=== PATIENT | male | born 1950 | race African-American/Black ===

== ENCOUNTER 2016-06-20 09:05 | Emergency (ER) | payer OTHER ==
[2016-06-20 10:09] LABS: Urine Bacteria Absent (Absent); Urine Bilirubin Negative (Negative); Urine Glucose Negative (Negative); Urine Nitrite Positive (Negative)
[2016-06-20] MEDS ORDERED: Ciprofloxacin TAB* 500 MG PO ONE ×2 (10:14→10:20)
[2016-06-20 10:46] VITALS: BP 148/103
--- NOTE | 2016-06-20 11:04 | ED ---
GI/ HPI - HPI Summary HPI Summary: Patient presents with 5 days of increasing pain with urination. He had an urinary tract infection a few years ago that felt the same. He tried drinking extra water without relief. He denies fever, chills, N/V/D, back pain or blood in his urine. - History of Current Complaint Hx Obtained From: Patient Onset/Duration: Started Days Ago - 5 Timing: Constant Severity: Moderate Current Severity: Moderate Location of Pain: None Pain Characteristics: Burning - with urination Associated Signs and Symptoms: Positive: Dysuria <Madhu Hagen - Last Filed: 06/20/16 10:39> <Ana Maria Adrian - Last Filed: 06/20/16 16:32> - History of Current Complaint Chief Complaint: EDUrogenitalProblems Time Seen by Provider: 06/20/16 09:14 Stated Complaint: PAINFUL URINATION - Allergy/Home Medications Allergies/Adverse Reactions: Allergies Allergy/AdvReac Type Severity Reaction Status Date / Time No Known Allergies Allergy Verified 12/13/15 16:06 PMH/Surg Hx/FS Hx/Imm Hx Endocrine/Hematology History: Denies: Hx Anticoagulant Therapy, Hx Diabetes Cardiovascular History: Denies: Other Cardiovascular Problems/Disorders - DENIES Respiratory History: Denies: Other Respiratory Problems/Disorders - DENIES GI History: Reports: Other GI Disorders - gall stone History: Reports: Other Problems/Disorders - Anal/ fistula, surgical repair Denies: Hx Renal Disease Sensory History: Denies: Hx Contacts or Glasses Opthamlomology History: Denies: Hx Contacts or Glasses Psychiatric History: Reports: Hx Substance Abuse - states not in 8 years. - Surgical History Surgery Procedure, Year, and Place: Anal/ fistula, surgical repair ~2010 Infectious Disease History: No Infectious Disease History: Denies: Traveled Outside the [place] in Last 30 Days - Family History Known Family History: Positive: None Negative: Cardiac Disease Family History: R & n/C - Social History Occupation: Unemployed Lives: With Family Alcohol Use: None Hx Substance Use: No Substance Use Type: Reports: None Hx Tobacco Use: Yes Smoking Status (MU): Former Smoker <Madhu Hagen - Last Filed: 06/20/16 10:39> Review of Systems Negative: Fever, Chills Positive: burning, dysuria. Negative: flank pain All Other Systems Reviewed And Are Negative: Yes <DevenJavierMadhu Peterson - Last Filed: 06/20/16 10:39> Physical Exam Triage Information Reviewed: Yes Vital Signs On Initial Exam: Initial Vitals Temp Pulse Resp BP Pulse Ox 97.5 F 98 20 136/104 95 06/20/16 09:07 06/20/16 09:07 06/20/16 09:07 06/20/16 09:07 06/20/16 09:07 Vital Signs Reviewed: Yes Appearance: Positive: Well-Appearing, No Pain Distress, Well-Nourished Skin: Positive: Warm, Skin Color Reflects Adequate Perfusion, Dry, Soft Head/Face: Positive: Normal Head/Face Inspection Eyes: Positive: EOMI, KATHLEEN, Conjunctiva Clear ENT: Positive: Hearing grossly normal Respiratory/Lung Sounds: Positive: Breath Sounds Present Cardiovascular: Positive: RRR Abdomen Description: Positive: Soft. Negative: Nontender, CVA Tenderness (R), CVA Tenderness (L), Distended, Guarding Bowel Sounds: Positive: Present Musculoskeletal: Negative: Edema Left, Edema Right Neurological: Positive: Sensory/Motor Intact, Alert, Oriented to Person Place, Time, [place] Bundle Intact Distally, Normal Gait Psychiatric: Positive: Affect/Mood Appropriate AVPU Assessment: Alert <XiaoMadhu Peterson - Last Filed: 06/20/16 10:39> Vital Signs On Initial Exam: Initial Vitals Temp Pulse Resp BP Pulse Ox 97.5 F 98 20 136/104 95 06/20/16 09:07 06/20/16 09:07 06/20/16 09:07 06/20/16 09:07 06/20/16 09:07 <Ana Maria Adrian - Last Filed: 06/20/16 16:32> Diagnostics - Vital Signs Vital Signs Temp Pulse Resp BP Pulse Ox 06/20/16 09:07 97.5 F 98 20 136/104 95 - Laboratory Lab Results: Lab Results 06/20/16 Range/Units 09:25 Urine Color Yellow Urine Appearance Cloudy Urine pH 5.0 (5-9) Ur Specific [place] 1.015 (1.010-1.030) Urine Protein 2+(100 mg/dl) H (Negative) Urine Ketones Negative (Negative) Urine Blood 3+ H (Negative) Urine Nitrate Positive H (Negative) Urine Bilirubin Negative (Negative) Urine Urobilinogen Negative (Negative) Ur Leukocyte Esterase 3+ H (Negative) Urine WBC (Auto) 3+(>20/hpf) H (Absent) Urine RBC (Auto) 3+(>10/hpf) H (Absent) Urine Bacteria Absent (Absent) Urine Glucose Negative (Negative) Lab Statement: Any lab studies that have been ordered have been reviewed, and results considered in the medical decision making process. <Madhu Hagen - Last Filed: 06/20/16 10:39> - Vital Signs Vital Signs Temp Pulse Resp BP Pulse Ox 06/20/16 10:44 97.5 F 79 18 148/103 06/20/16 10:42 97.3 F 76 18 148/101 96 06/20/16 09:07 97.5 F 98 20 136/104 95 - Laboratory Lab Results: Lab Results 06/20/16 Range/Units 09:25 Urine Color Yellow Urine Appearance Cloudy Urine pH 5.0 (5-9) Ur Specific [place] 1.015 (1.010-1.030) Urine Protein 2+(100 mg/dl) H (Negative) Urine Ketones Negative (Negative) Urine Blood 3+ H (Negative) Urine Nitrate Positive H (Negative) Urine Bilirubin Negative (Negative) Urine Urobilinogen Negative (Negative) Ur Leukocyte Esterase 3+ H (Negative) Urine WBC (Auto) 3+(>20/hpf) H (Absent) Urine RBC (Auto) 3+(>10/hpf) H (Absent) Urine Bacteria Absent (Absent) Urine Glucose Negative (Negative) Lab Statement: Any lab studies that have been ordered have been reviewed, and results considered in the medical decision making process. <Ana Maria Adrian - Last Filed: 06/20/16 16:32> GIGU Course/Dx - Diagnoses Differential Diagnoses - Male: Cystitis, Epididymitis, Renal Colic, Urethritis, Urinary Tract Infection <Madhu Hagen - Last Filed: 06/20/16 10:39> <Ana Maria Adrian - Last Filed: 06/20/16 16:32> - Diagnoses Provider Diagnoses: UTI (urinary tract infection) Discharge <Madhu Hagen - Last Filed: 06/20/16 10:39> <Ana Maria Adrian - Last Filed: 06/20/16 16:32> - Discharge Plan Condition: Stable Disposition: HOME Patient Education Materials: Urinary Tract Infection in Men (ED) Referrals: Pb Vann MD [Primary Care Provider] - Additional Instructions: Please take the medication provided until it is completely gone. Drink extra water and follow-up with your primary care provider if your symptoms do not improve. Return to the emergency department if symptoms worsen. Attestations User Type: Provider - I was available for consult. This patient was seen by the LEANA. The patient was not presented to, seen by, or examined by de - BEVERLY <Ana Maria Adrian - Last Filed: 06/20/16 16:32>
--- NOTE | 2016-06-23 08:57 | PN ---
Progress Note - Progress Note Note: urine culture final shows MRSA colony count. Patient placed on cipro. nothing further at this time.
== END 2016-06-20 10:44 | disposition home or self-care (01) ==
LOC: ED 09:05
DX: N39.0 Urinary tract infection, site not specified (principal); R30.0 Dysuria; Z87.891 Personal history of nicotine dependence
CPT/HCPCS: 81003; 81015; 87077; 87086; 87186; 99282; A9270-GY

== ENCOUNTER 2016-07-03 01:07 | Emergency (ER) | payer OTHER ==
[2016-07-03 01:19] VITALS: BP 134/82
[2016-07-03 02:10] LABS: Urine Bacteria Absent (Absent); Urine Bilirubin Negative (Negative); Urine Glucose Negative (Negative); Urine Nitrite Negative (Negative)
[2016-07-03] MEDS ORDERED: Sulfamethox/Trimethoprim DS 800/160* TAB PO ONE (02:15)
--- NOTE | 2016-07-03 02:26 | ED ---
Luis Eduardo Shafer Michael, scribed for Chicho Pelletier MD on 07/03/16 at 0217 . GI/ HPI - HPI Summary HPI Summary: 66 y/o male comes to the ED presenting with dysuria that started 2 weeks ago. The pt visited the ED on 06/20/16 and he was dx with a UTI. The pt did not follow up with his PCP. He states increasing burning with urination and frequency.The PMHx is significant for UTI. - History of Current Complaint Chief Complaint: EDUrogenitalProblems Time Seen by Provider: 07/03/16 02:10 Stated Complaint: PAINFUL URINATION Hx Obtained From: Patient, Medical Records Onset/Duration: Started Weeks Ago, Still Present Timing: Constant Severity: Moderate Current Severity: Moderate Pain Intensity: 3 Pain Characteristics: Burning Associated Signs and Symptoms: Positive: Dysuria - increased frequency - Allergy/Home Medications Allergies/Adverse Reactions: Allergies Allergy/AdvReac Type Severity Reaction Status Date / Time No Known Allergies Allergy Verified 12/13/15 16:06 PMH/Surg Hx/FS Hx/Imm Hx Endocrine/Hematology History: Denies: Hx Anticoagulant Therapy, Hx Diabetes Cardiovascular History: Denies: Other Cardiovascular Problems/Disorders - DENIES Respiratory History: Denies: Other Respiratory Problems/Disorders - DENIES GI History: Reports: Other GI Disorders - gall stone History: Reports: Other Problems/Disorders - Anal/ fistula, surgical repair Denies: Hx Renal Disease Sensory History: Denies: Hx Contacts or Glasses Opthamlomology History: Denies: Hx Contacts or Glasses Psychiatric History: Reports: Hx Substance Abuse - states not in 8 years. - Surgical History Surgery Procedure, Year, and Place: Anal/ fistula, surgical repair ~2010 Infectious Disease History: No Infectious Disease History: Denies: Traveled Outside the [place] in Last 30 Days - Family History Known Family History: Positive: None Negative: Cardiac Disease - Social History Occupation: Unemployed Lives: Alone Alcohol Use: None Hx Substance Use: No Substance Use Type: Reports: None Hx Tobacco Use: Yes Smoking Status (MU): Former Smoker Review of Systems Negative: Fever Positive: dysuria, frequency All Other Systems Reviewed And Are Negative: Yes Physical Exam Triage Information Reviewed: Yes Vital Signs On Initial Exam: Initial Vitals Temp Pulse Resp BP Pulse Ox 97.8 F 85 18 134/82 96 07/03/16 01:15 07/03/16 01:15 07/03/16 01:15 07/03/16 01:15 07/03/16 01:15 Vital Signs Reviewed: Yes Appearance: Positive: No Pain Distress, Thin Skin: Positive: Warm Eyes: Positive: Normal ENT: Positive: Hearing grossly normal Neck: Positive: Supple Respiratory/Lung Sounds: Positive: Clear to Auscultation, Breath Sounds Present Cardiovascular: Positive: RRR Abdomen Description: Positive: Nontender, Soft. Negative: CVA Tenderness (R), CVA Tenderness (L) Bowel Sounds: Positive: Present Musculoskeletal: Positive: Strength/ROM Intact Neurological: Positive: Sensory/Motor Intact, Alert, Oriented to Person Place, Time Diagnostics - Vital Signs Vital Signs Temp Pulse Resp BP Pulse Ox 07/03/16 01:15 97.8 F 85 18 134/82 96 - Laboratory Lab Results: Lab Results 07/03/16 Range/Units 02:00 Urine Color Yellow Urine Appearance Cloudy Urine pH 5.0 (5-9) Ur Specific [place] 1.005 L (1.010-1.030) Urine Protein 2+(100 mg/dl) H (Negative) Urine Ketones Negative (Negative) Urine Blood 3+ H (Negative) Urine Nitrate Negative (Negative) Urine Bilirubin Negative (Negative) Urine Urobilinogen Negative (Negative) Ur Leukocyte Esterase 3+ H (Negative) Urine WBC (Auto) 3+(>20/hpf) H (Absent) Urine RBC (Auto) 3+(>10/hpf) H (Absent) Ur Squamous Epith Cells Present H (Absent) Ur Transition Epith Cell Present H (Absent) Urine Bacteria Absent (Absent) Urine Glucose Negative (Negative) Lab Statement: Any lab studies that have been ordered have been reviewed, and results considered in the medical decision making process. GIGU Course/Dx - Diagnoses Provider Diagnoses: UTI (urinary tract infection) Discharge - Discharge Plan Condition: Stable Disposition: HOME Prescriptions: Sulfamethox/Trimethoprim DS* [Bactrim DS 800/160 TAB*] 1 tab PO BID #14 tab Patient Education Materials: Urinary Tract Infection in Men (ED) Referrals: Francis Churchill MD [Medical Doctor] - Additional Instructions: Please follow up with Dr. Churchill within the next 2 days. The documentation as recorded by the Luis Eduardo youngblood Michael accurately reflects the service I personally performed and the decisions made by Liyah doll David, MD.
== END 2016-07-03 02:41 | disposition home or self-care (01) ==
LOC: ED 01:07
DX: N39.0 Urinary tract infection, site not specified (principal); R30.0 Dysuria; Z87.891 Personal history of nicotine dependence
CPT/HCPCS: 81003; 81015; 87077; 87086; 87186; 99281; A9270-GY

== ENCOUNTER 2017-08-05 04:46 | Emergency (ER) | payer MEDICARE, OTHER ==
[2017-08-05] MEDS ORDERED: Albuterol 2.5 MG/3 ML NEB.SOL* (0.083%) INH ONE (05:47)
--- NOTE | 2017-08-05 05:57 | ED ---
Respiratory - HPI Summary HPI Summary: Pt. is a 67-year-old male who presents emergency department for productive cough , shortness of breath, sore throat, sinus congestion, body aches times one week. He denies associated symptoms of fever, chest pain, abdominal pain, vomiting, diarrhea. Symptoms are mild in severity. He denies past medical history and does not take any medications on a daily basis. States he stopped smoking 2 years ago. Symptoms are mild in severity. No current modifying factors. - History of Current Complaint Chief Complaint: EDUpperRespComplaint Stated Complaint: UNABLE TO SLEEP, WEAKNESS Time Seen by Provider: 08/05/17 04:57 Hx Obtained From: Patient Pain Intensity: 0 - Allergy/Home Medications Allergies/Adverse Reactions: Allergies Allergy/AdvReac Type Severity Reaction Status Date / Time No Known Allergies Allergy Verified 08/05/17 04:53 Home Medications: Home Medications Abacavir/Dolutegravir/Lamivudi [Triumeq Tablet] 1 tab PO DAILY 08/05/17 [ History Confirmed 08/05/17] PMH/Surg Hx/FS Hx/Imm Hx Previously Healthy: Yes Endocrine/Hematology History: Denies: Hx Anticoagulant Therapy, Hx Diabetes Cardiovascular History: Denies: Other Cardiovascular Problems/Disorders - DENIES Respiratory History: Denies: Other Respiratory Problems/Disorders - DENIES GI History: Reports: Other GI Disorders - gall stone History: Reports: Other Problems/Disorders - Anal/ fistula, surgical repair Denies: Hx Renal Disease Sensory History: Denies: Hx Contacts or Glasses Opthamlomology History: Denies: Hx Contacts or Glasses Psychiatric History: Reports: Hx Substance Abuse - states not in 8 years. - Surgical History Surgery Procedure, Year, and Place: Anal/ fistula, surgical repair ~2010 Infectious Disease History: No Infectious Disease History: Denies: Traveled Outside the [place] in Last 30 Days - Family History Known Family History: Positive: None Negative: Cardiac Disease Family History: R & n/C - Social History Occupation: Unemployed Lives: Alone Alcohol Use: None Hx Substance Use: No Substance Use Type: Reports: None Hx Tobacco Use: Yes Smoking Status (MU): Former Smoker Review of Systems Constitutional: Negative Negative: Fever, Chills Eyes: Negative Positive: Sore Throat, Nasal Discharge Cardiovascular: Negative Negative: Palpitations, Chest Pain Positive: Shortness Of Breath, Cough Gastrointestinal: Negative Negative: Abdominal Pain, Vomiting, Diarrhea, Nausea Genitourinary: Negative Positive: Myalgia Skin: Negative Neurological: Negative All Other Systems Reviewed And Are Negative: Yes Physical Exam Triage Information Reviewed: Yes Vital Signs On Initial Exam: Initial Vitals Temp Pulse Resp BP Pulse Ox 97.3 F 101 19 138/93 93 08/05/17 04:50 08/05/17 04:50 08/05/17 04:50 08/05/17 04:50 08/05/17 04:50 Vital Signs Reviewed: Yes Appearance: Positive: Well-Appearing - Pt. sitting on bed in NAD. Watching TV. Skin: Positive: Warm, Dry Head/Face: Positive: Normal Head/Face Inspection Eyes: Positive: Normal ENT: Positive: Pharyngeal erythema, Nasal congestion, TMs normal. Negative: TM bulging, TM red, Tonsillar swelling, Tonsillar exudate Neck: Positive: Supple. Negative: Nuchal Rigidity Respiratory/Lung Sounds: Positive: Decreased Breath Sounds, Rhonchi Cardiovascular: Positive: Normal, RRR Musculoskeletal: Positive: Normal Neurological: Positive: Normal, CN Intact II-III Psychiatric: Positive: Normal Diagnostics - Vital Signs Vital Signs Temp Pulse Resp BP Pulse Ox 08/05/17 04:50 97.3 F 101 19 138/93 93 - Laboratory Result Diagrams: 08/05/17 06:47 08/05/17 06:47 Lab Statement: Any lab studies that have been ordered have been reviewed, and results considered in the medical decision making process. Disposition - Course Course Of Treatment: Pt. presenting to the ER for URI sxs. He is afebrile. O2 saturation is 93% on RA which is low normal. Will give breathing treatment and check CXR. On further evaluation it appears pt. has a history of HIV and hepatitis and is on Triumeq. Will also check basic labs. CXR reviewed by myself and Dr. Grullon and is concerning for right lower lobe infiltrate. On re-exam pt. is feeling better after breathing treatment. CBC is unremarkable. Negative trop and BNP. ECG done at 0640 shows a sinus tachycardia at 106bpm, indeterminate axis, no ST elevation or depression, similar to prior tracing. CMP shows mild increase in creatine. K 3.3. On re-exam pt. is sleeping comfortably. Results were discussed. Will treat with zithromax, albuterol inhaler, medrol dose pack and tessalon pearles. Advised to call PCP today for f.u. To return to ER if sxs change or worsen. Pt. understands and agrees with plan. - Differential Dx - Cardiopulmonary Differential Diagnoses - Cardiopulmonary: Bronchitis, Exacerbation Of COPD - Pneumonia, Lower Resp Infection - Diagnoses Provider Diagnoses: Bronchitis Discharge - Sign-Out/Discharge Documenting (check all that apply): Discharge/Admit/Transfer - Discharge Plan Condition: Good Disposition: HOME Prescriptions: Albuterol HFA INHALER* [Ventolin HFA Inhaler*] 1 puff INH Q4H PRN #1 mdi PRN Reason: Wheezing Azithromycin TAB* [Zithromax TAB (Z-ANDREAS) 250 mg #6 tabs] 2 tab PO .TODAY, THEN 1 DAILY #1 andreas Benzonatate CAP* [Tessalon 100 MG CAP*] 100 mg PO TID #12 cap methylPREDNISolone [Medrol Dosepak 4 MG*] 0 mg PO .SEE ANDREAS INSTRUCTION #1 tab Patient Education Materials: Acute Bronchitis (ED) Referrals: Pb Vann MD [Primary Care Provider] - Additional Instructions: Call your PCP today to make a follow up appointment Take medication as directed Increase fluids and rest Return to ER if symptoms change or worsen - Billing Disposition and Condition Condition: GOOD Disposition: HOME
[2017-08-05 07:11] LABS: ABS Basophils 0 10^3/ul (0-0.2); ABS Eosinophils 0.1 10^3/ul (0-0.6); ABS Lymphocytes 2.4 10^3/ul (1.0-4.8); ABS Monocytes 0.5 10^3/ul (0-0.8); ABS Neutrophils 2.7 10^3/ul (1.5-7.7); ABS Nucleated RBC 0 10^3/ul; Eosinophil % 1.4 % (0-6); Hematocrit 38 % (42-52); Hemoglobin 12.6 g/dl (14.0-18.0); Lymphocyte % 42.7 % (25-47); Mean Corpuscular HGB Conc 33 g/dl (31-36); Mean Corpuscular Hemoglobin 29 pg (27-31); Mean Corpuscular Volume 87 fL (80-94); Mean Platelet Volume 8.7 um3 (7.4-10.4); Nucleated Red Blood Cells % 0.2; Platelet Count 146 10^3/ul (150-450); Red Blood Count 4.39 10^6/ul (4.0-5.4); Red Cell Distribution Width 15 % (10.5-15); White Blood Count 5.7 10^3/ul (3.5-10.8)
--- NOTE | 2017-08-05 08:01 | RAD ---
Indication: Cough. 2 views of the chest demonstrates no mediastinal shift. Heart is of normal size and configuration. There is faint nodular density in the left lung base which may be some atelectasis or prominent vessels however this appears more prominent than the previous exam. CT of the chest could be performed for further evaluation. IMPRESSION: There is evidence of a nodular density in the left base in the infrahilar area. CT of the chest is suggested for further evaluation.
[2017-08-05 08:05] VITALS: BP 133/86
== END 2017-08-05 08:05 | disposition home or self-care (01) ==
LOC: ED 04:46
DX: J40 Bronchitis, not specified as acute or chronic (principal); R91.1 Solitary pulmonary nodule; Z87.891 Personal history of nicotine dependence
CPT/HCPCS: 36415; 71046; 80053; 83880; 84484; 85025; 93005; 99282

== ENCOUNTER 2018-01-09 05:30 | Emergency (ER) | payer MEDICARE, MEDICAID ==
--- OUTSIDE RECORDS SUMMARY | 2018-01-09 05:41 | XMS REPORT ---
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 Pb Vann III, MD Primary Care Physician Unavailable Payers Type Date Identification Numbers Payment Provider Subscriber Medicare Primary Effective: Policy Number: Medicare Trini Rodriguez 2017 [id number] PayID: [id number] [address] [place] [address] Medigap Part B Effective: 2017 Policy Number: [id number] Medicaid Trini Rodriguez PayID: [id number] [address] [place] [address] Commercial Effective: Policy Number: [employer] Trini Rodriguez 2014 [id number] Medicaid Expires: 2017 PayID: [id number] [address] [address] [place] [address] Problems Date Description Provider Status Onset: 02/21/2015 Chronic hepatitis C Pb Vann M.D. Active Onset: 04/22/2013 Arthralgia of the pelvic region and Pb Vann M.D. Active thigh Onset: 04/22/2013 Dysuria Pb Vann M.D. Active Family History Date Family Member(s) Problem(s) Comments General No Current Problems Social History Type Date Description Comments Lives With Brother ETOH Use Denies alcohol use Recreational Drug Use Denies Drug Use Smoking Patient is a former smoker quit November 2015 Exercise Type/Frequency Exercises sporadically General Hx Text Past IVDU Allergies, Adverse Reactions, Alerts Date Description Reaction Status Severity Comments 04/22/2013 NKDA active Medications Medication Date Status Form Strength Qnty SIG Indications Ordering Provider Ventolin HFA 05/10/ Active Aerosol 108(90Base 18unit Take 2 R06.00 Elvis Puente 2016 ) mcg/Act s Puffs Every [place], 6 Hours as M.D. Needed For Shortness Of Breath Triumeq 11/22/ Active Tablets 600-50-300 90tabs 1 by mouth B20 Elvis Puente 2015 mg every day Gwendolyn Vallejo Zepatier 11/26/ Hx Tablets 50-100mg 30tabs 1 by mouth Elvis DAurelio 2016 - every day [place], 05/12/ (ordered M.D. 2017 through [facility]) Gabapentin 06/25/ Hx Capsules 300mg 30caps 1 cap at B02.23 Elvis Puente 2016 - bedtime Yoni, 10/21/ M.DAurelio 2016 No Active 10/24/ Hx Unknown Medications 2015 - 2015 Trazodone HCL 05/06/ Hx Tablets 50mg 30tabs 1/2 tablet G47.00 Pb Rolle 2015 - at bedtime Soo 10/23/ M.DAurelio 2015 No Active 10/06/ Hx Unknown Medications 2014 - 2015 Doxycycline 08/31/ Hx Tablets DR 100mg 20tabs 1 by mouth Pb Rolle Hyclate 2014 - twice a day Soo, 09/06/ x 10 days M.D. 2014 No Active 04/22/ Hx Unknown Medications 2013 - 2014 Nicotine / Hx Patches 21mg/24HR 1 patch Unknown 0000 - 24HR over skin 02/07/ every day 2016 Immunizations CPT Code Status Date Vaccine Lot # [id number] Given 05/13/2017 Influenza Virus Vaccine, Quadrivalent, Split, [id number] Preservative Free [id number] Given 01/02/2016 Influenza Virus Vaccine, Quadrivalent, Split, Preservative Free [id number] Given 11/23/2015 Pneumococcal Conjugate Vaccine 13 Valent For [id number] Intramuscular Use 43741 Given 08/19/2014 Pneumonia Vaccine [id number] 46545 Given 08/19/2014 Tdap - Tetanus/Diptheria/Acellular Pertussis [id number] Vital Signs Date Vital Result Comment 12/30/2017 Height 65 inches 5'5" Weight 173.50 lb Heart Rate 80 /min BP Systolic Sitting 124 mmHg BP Diastolic Sitting 90 mmHg Respiratory Rate 14 /min Body Temperature 98.1 F BMI (Body Mass Index) 28.9 kg/m2 08/12/2017 Height 65 inches 5'5" Weight 179.12 lb Heart Rate 72 /min BP Systolic Sitting 124 mmHg BP Diastolic Sitting 80 mmHg Respiratory Rate 14 /min Body Temperature 97.0 F BMI (Body Mass Index) 29.8 kg/m2 05/13/2017 Height 65 inches 5'5" Weight 180.25 lb Heart Rate 72 /min BP Systolic Sitting 118 mmHg BP Diastolic Sitting 80 mmHg Respiratory Rate 14 /min Body Temperature 98.7 F BMI (Body Mass Index) 30.0 kg/m2 03/11/2017 Height 65 inches 5'5" Weight 179.12 lb Heart Rate 72 /min BP Systolic Sitting 138 mmHg BP Diastolic Sitting 80 mmHg Respiratory Rate 14 /min Body Temperature 98.0 F BMI (Body Mass Index) 29.8 kg/m2 01/07/2017 Height 65 inches 5'5" Weight 177.12 lb Heart Rate 68 /min BP Systolic Sitting 126 mmHg BP Diastolic Sitting 94 mmHg Respiratory Rate 14 /min Body Temperature 98.5 F BMI (Body Mass Index) 29.5 kg/m2 11/26/2016 Height 65 inches 5'5" Weight 175.00 lb Heart Rate 72 /min BP Systolic Sitting 118 mmHg BP Diastolic Sitting 72 mmHg Respiratory Rate 14 /min Body Temperature 98.3 F O2 % BldC Oximetry 96 % BMI (Body Mass Index) 29.1 kg/m2 10/22/2016 Height 65 inches 5'5" Weight 170.12 lb Heart Rate 78 /min BP Systolic Sitting 124 mmHg BP Diastolic Sitting 82 mmHg Respiratory Rate 14 /min Body Temperature 97.7 F BMI (Body Mass Index) 28.3 kg/m2 08/07/2016 Height 65 inches 5'5" Weight 173.50 lb Heart Rate 84 /min BP Systolic Sitting 154 mmHg BP Diastolic Sitting 80 mmHg Respiratory Rate 14 /min Body Temperature 97.6 F BMI (Body Mass Index) 28.9 kg/m2 06/25/2016 Height 65 inches 5'5" Weight 163.50 lb Heart Rate 72 /min BP Systolic Sitting 110 mmHg BP Diastolic Sitting 70 mmHg Respiratory Rate 14 /min Body Temperature 97.7 F BMI (Body Mass Index) 27.2 kg/m2 05/10/2016 Height 65 inches 5'5" Weight 168.00 lb Heart Rate 70 /min BP Systolic Sitting 144 mmHg BP Diastolic Sitting 94 mmHg Respiratory Rate 14 /min Body Temperature 97.9 F O2 % BldC Oximetry 96 % BMI (Body Mass Index) 28.0 kg/m2 03/28/2016 Height 65 inches 5'5" Weight 161.50 lb Heart Rate 72 /min BP Systolic Sitting 146 mmHg BP Diastolic Sitting 92 mmHg Respiratory Rate 14 /min Body Temperature 97.7 F BMI (Body Mass Index) 26.9 kg/m2 02/09/2016 Height 65 inches 5'5" Weight 155.00 lb Heart Rate 68 /min BP Systolic Sitting 140 mmHg BP Diastolic Sitting 90 mmHg Respiratory Rate 14 /min Body Temperature 99.4 F BMI (Body Mass Index) 25.8 kg/m2 11/23/2015 Height 65 inches 5'5" Weight 147.38 lb Heart Rate 64 /min BP Systolic Sitting 110 mmHg BP Diastolic Sitting 70 mmHg Respiratory Rate 14 /min Body Temperature 97.0 F BMI (Body Mass Index) 24.5 kg/m2 10/25/2015 Height 65 inches 5'5" Weight 143.25 lb Heart Rate 62 /min BP Systolic Sitting 110 mmHg BP Diastolic Sitting 80 mmHg Respiratory Rate 14 /min Body Temperature 97.2 F BMI (Body Mass Index) 23.8 kg/m2 05/06/2015 Height 65 inches 5'5" Weight 153.00 lb Heart Rate 74 /min BP Systolic 126 mmHg BP Diastolic 88 mmHg Body Temperature 98.0 F O2 % BldC Oximetry 94 % BMI (Body Mass Index) 25.5 kg/m2 02/21/2015 Height 65 inches 5'5" Weight 153.50 lb Heart Rate 87 /min BP Systolic Sitting 144 mmHg BP Diastolic Sitting 76 mmHg Body Temperature 97.1 F O2 % BldC Oximetry 98 % BMI (Body Mass Index) 25.5 kg/m2 11/10/2014 Height 65 inches 5'5" Weight 147.00 lb Heart Rate 63 /min BP Systolic 121 mmHg BP Diastolic 88 mmHg Body Temperature 96.7 F BMI (Body Mass Index) 24.5 kg/m2 11/10/2014 Height 65 inches 5'5" Weight 160.00 lb Heart Rate 68 /min BP Systolic Sitting 121 mmHg BP Diastolic Sitting 93 mmHg Respiratory Rate 16 /min Pain Level 7 BMI (Body Mass Index) 26.6 kg/m2 10/06/2014 Height 65 inches 5'5" Weight 156.00 lb Pain Level 4 BMI (Body Mass Index) 26.0 kg/m2 08/19/2014 Height 65 inches 5'5" Weight 156.00 lb Heart Rate 67 /min BP Systolic Sitting 124 mmHg BP Diastolic Sitting 76 mmHg O2 % BldC Oximetry 95 % BMI (Body Mass Index) 26.0 kg/m2 07/26/2014 Height 65 inches 5'5" Weight 140.00 lb Heart Rate 78 /min BP Systolic 119 mmHg BP Diastolic 80 mmHg BMI (Body Mass Index) 23.3 kg/m2 04/22/2013 Height 67 inches 5'7" Weight 152.00 lb Heart Rate 70 /min BP Systolic Sitting 110 mmHg BP Diastolic Sitting 68 mmHg BMI (Body Mass Index) 23.8 kg/m2 Results Test Date Test Result H/L Range Note Laboratory test 08/30/2017 Hepatitis C Rna Undetected IU/mL Undetected 1 finding Quant CBC Auto Diff 08/30/2017 White Blood Count 4.0 10^3/uL 3.5-10.8 Red Blood Count 4.41 10^6/uL 4.0-5.4 Hemoglobin 12.5 g/dL Low 14.0-18.0 Hematocrit 38 % Low 42-52 Mean Corpuscular Volume 87 fL 80-94 Mean Corpuscular Hemoglobin 28 pg 27-31 Mean Corpuscular HGB Conc 33 g/dL 31-36 Red Cell Distribution Width 15 % 10.5-15 Platelet Count 168 10^3/uL 150-450 Mean Platelet Volume 7.9 um3 7.4-10.4 Abs Neutrophils 1.6 10^3/uL 1.5-7.7 Abs Lymphocytes 1.7 10^3/uL 1.0-4.8 Abs Monocytes 0.5 10^3/uL 0-0.8 Abs Eosinophils 0.1 10^3/uL 0-0.6 Abs Basophils 0 10^3/uL 0-0.2 Abs Nucleated RBC 0 10^3/uL Granulocyte % 40.5 % 38-83 Lymphocyte % 42.0 % 25-47 Monocyte % 13.2 % High 0-7 Eosinophil % 3.6 % 0-6 Basophil % 0.7 % 0-2 Nucleated Red Blood Cells % 0.2 Comp Metabolic Panel 08/30/2017 Sodium 137 mmol/L Low 139-145 Potassium 4.3 mmol/L 3.5-5.0 Chloride 106 mmol/L 101-111 Co2 Carbon Dioxide 26 mmol/L 22-32 Anion Gap 5 mmol/L 2-11 Glucose 97 mg/dL 70-100 Blood Urea Nitrogen 15 mg/dL 6-24 Creatinine 1.25 mg/dL High 0.67-1.17 BUN/Creatinine Ratio 12.0 8-20 Calcium 8.7 mg/dL 8.6-10.3 Total Protein 7.6 g/dL 6.4-8.9 Albumin 3.4 g/dL 3.2-5.2 Globulin 4.2 g/dL High 2-4 Albumin/Globulin Ratio 0.8 Low 1-3 Total Bilirubin 0.60 mg/dL 0.2-1.0 Alkaline Phosphatase 55 U/L 34-104 Alt 12 U/L 7-52 Ast 19 U/L 13-39 Egfr Non- 58.0 >60 Egfr 74.6 >60 2 HIV-1 Rna QNT By PCR 08/30/2017 HIV-1 Rna (PCR) Undetected copies/mL Undetected 3 Sli Laboratory test 08/30/2017 Syphillis Igg Nonreactive Nonreactive 4 finding W/Reflex RPR Quantiferon Gold TB 08/30/2017 QuantiFERON-Tb Negative Negative 5 Gold Plus TB1 Ag minus Nil Result 0 IU/mL TB2 Ag minus Nil Result -0.01 IU/mL TB Mitogen minus Nil Result 9.96 IU/mL TB Nil Result 0.04 IU/mL 6 Fibro Test-Actitest, Serum 08/30/2017 FibroTest Score 0.51 FibroTest Stage F2 FibroTest Interpretation moderate fibrosi <SEE NOTE> 7 ActiTest Score 0.08 ActiTest Grade A0 ActiTest Interpretation no activity 8 FibroTest-ActiTest Comment See Comment 9 [employer] Serial Number [id number] Apolipoprotein A1, S 120 mg/dL >=120 [id number], S 363 mg/dL 100 - 280 Haptoglobin, S 173 mg/dL 30 - 200 Alanine Aminotransferase (Alt) 17 U/L 7-55 Gamma Glutamyltransferase GGT 17 U/L 8 - 61 Bilirubin, Total, S 0.4 mg/dL <=1.2 10 CBC Auto Diff 08/05/2017 White Blood Count 5.7 10^3/uL 3.5-10.8 Red Blood Count 4.39 10^6/uL 4.0-5.4 Hemoglobin 12.6 g/dL Low 14.0-18.0 Hematocrit 38 % Low 42-52 Mean Corpuscular Volume 87 fL 80-94 Mean Corpuscular Hemoglobin 29 pg 27-31 Mean Corpuscular HGB Conc 33 g/dL 31-36 Red Cell Distribution Width 15 % 10.5-15 Platelet Count 146 10^3/uL Low 150-450 Mean Platelet Volume 8.7 um3 7.4-10.4 Abs Neutrophils 2.7 10^3/uL 1.5-7.7 Abs Lymphocytes 2.4 10^3/uL 1.0-4.8 Abs Monocytes 0.5 10^3/uL 0-0.8 Abs Eosinophils 0.1 10^3/uL 0-0.6 Abs Basophils 0 10^3/uL 0-0.2 Abs Nucleated RBC 0 10^3/uL Granulocyte % 46.5 % 38-83 Lymphocyte % 42.7 % 25-47 Monocyte % 9.2 % High 0-7 Eosinophil % 1.4 % 0-6 Basophil % 0.2 % 0-2 Nucleated Red Blood Cells % 0.2 Comp Metabolic Panel 08/05/2017 Sodium 140 mmol/L 139-145 Potassium 3.3 mmol/L Low 3.5-5.0 Chloride 108 mmol/L 101-111 Co2 Carbon Dioxide 24 mmol/L 22-32 Anion Gap 8 mmol/L 2-11 Calcium 8.5 mg/dL Low 8.6-10.3 Albumin 3.3 g/dL 3.2-5.2 Total Bilirubin 0.40 mg/dL 0.2-1.0 Glucose 181 mg/dL High 70-100 Blood Urea Nitrogen 16 mg/dL 6-24 Creatinine 1.42 mg/dL High 0.67-1.17 BUN/Creatinine Ratio 11.3 8-20 Total Protein 7.7 g/dL 6.4-8.9 Globulin 4.4 g/dL High 2-4 Albumin/Globulin Ratio 0.8 Low 1-3 Alkaline Phosphatase 64 U/L 34-104 Alt 12 U/L 7-52 Ast 22 U/L 13-39 Egfr Non- 50.0 >60 Egfr 64.3 >60 11 Laboratory test finding 08/05/2017 Troponin-I (TnI) 0.01 ng/mL <0.04 B-Type Natriuretic Peptide BNP 13 pg/mL 12 HIV-1 Rna QNT By PCR 04/15/2017 HIV-1 Rna (PCR) Undetected copies/mL Undetected 13 Sli Comp Metabolic Panel 04/15/2017 Sodium 135 mmol/L 133-145 Potassium 4.3 mmol/L 3.5-5.0 Chloride 104 mmol/L 101-111 Co2 Carbon Dioxide 27 mmol/L 22-32 Anion Gap 4 mmol/L 2-11 Glucose 94 mg/dL 70-100 Blood Urea Nitrogen 20 mg/dL 6-24 Creatinine 1.24 mg/dL High 0.67-1.17 BUN/Creatinine Ratio 16.1 8-20 Calcium 8.9 mg/dL 8.6-10.3 Total Protein 7.8 g/dL 6.4-8.9 Albumin 3.5 g/dL 3.2-5.2 Globulin 4.3 g/dL High 2-4 Albumin/Globulin Ratio 0.8 Low 1-3 Total Bilirubin 0.50 mg/dL 0.2-1.0 Alkaline Phosphatase 69 U/L 34-104 Alt 10 U/L 7-52 Ast 17 U/L 13-39 Egfr Non- 58.7 >60 Egfr 75.5 >60 14 CD4/CD8 T-Cell Count 04/15/2017 Absolute CD45 Count 1.88 thou/mcL 0.82- 2.84 % CD3 87 % 58-86 % CD4 13 % 32-64 % CD8 75 % 8-40 CD3 1645 cells/L 550-2202 CD4 253 cells/L 365-1437 CD8 1404 cells/L 80-846 H/S Ratio 0.2 >=0.9 CD4 Reviewed By See Comment 15 CBC Auto Diff 04/15/2017 White Blood Count 5.3 10^3/uL 3.5-10.8 Red Blood Count 4.68 10^6/uL 4.0-5.4 Hemoglobin 13.7 g/dL Low 14.0-18.0 Hematocrit 41 % Low 42-52 Mean Corpuscular Volume 87 fL 80-94 Mean Corpuscular Hemoglobin 29 pg 27-31 Mean Corpuscular HGB Conc 33 g/dL 31-36 Red Cell Distribution Width 16 % High 10.5-15 Platelet Count 193 10^3/uL 150-450 Mean Platelet Volume 9 um3 7.4-10.4 Abs Neutrophils 2.5 10^3/uL 1.5-7.7 Abs Lymphocytes 2.1 10^3/uL 1.0-4.8 Abs Monocytes 0.6 10^3/uL 0-0.8 Abs Eosinophils 0.2 10^3/uL 0-0.6 Abs Basophils 0 10^3/uL 0-0.2 Abs Nucleated RBC 0 10^3/uL Granulocyte % 46.9 % 38-83 Lymphocyte % 38.8 % 25-47 Monocyte % 10.9 % High 1-9 Eosinophil % 2.9 % 0-6 Basophil % 0.5 % 0-2 Nucleated Red Blood Cells % 0.2 HIV-1 Rna QNT By 10/24/2016 HIV-1 Rna (PCR) Undetected copies/mL Undetected 16 PCR Sli CBC Auto Diff 10/24/2016 White Blood Count 5.2 10^3/uL 3.5-10.8 Red Blood Count 4.21 10^6/uL 4.0-5.4 Hemoglobin 13.1 g/dL Low 14.0-18.0 Hematocrit 40 % Low 42-52 Mean Corpuscular Volume 94 fL 80-94 Mean Corpuscular Hemoglobin 31 pg 27-31 Mean Corpuscular HGB Conc 33 g/dL 31-36 Red Cell Distribution Width 14 % 10.5-15 Platelet Count 157 10^3/uL 150-450 Mean Platelet Volume 9 um3 7.4-10.4 Abs Neutrophils 2.1 10^3/uL 1.5-7.7 Abs Lymphocytes 2.3 10^3/uL 1.0-4.8 Abs Monocytes 0.6 10^3/uL 0-0.8 Abs Eosinophils 0.2 10^3/uL 0-0.6 Abs Basophils 0 10^3/uL 0-0.2 Abs Nucleated RBC 0.01 10^3/uL Granulocyte % 39.8 % 38-83 Lymphocyte % 44.9 % 25-47 Monocyte % 10.9 % High 1-9 Eosinophil % 4.0 % 0-6 Basophil % 0.4 % 0-2 Nucleated Red Blood Cells % 0.1 Comp Metabolic Panel 10/24/2016 Sodium 134 mmol/L 133-145 Potassium 4.1 mmol/L 3.5-5.0 Chloride 104 mmol/L 101-111 Co2 Carbon Dioxide 25 mmol/L 22-32 Anion Gap 5 mmol/L 2-11 Glucose 92 mg/dL 70-100 Blood Urea Nitrogen 20 mg/dL 6-24 Creatinine 1.14 mg/dL 0.67-1.17 BUN/Creatinine Ratio 17.5 8-20 Calcium 9.3 mg/dL 8.6-10.3 Total Protein 8.2 g/dL 6.4-8.9 Albumin 3.4 g/dL 3.2-5.2 Globulin 4.8 g/dL High 2-4 Albumin/Globulin Ratio 0.7 Low 1-3 Total Bilirubin 0.40 mg/dL 0.2-1.0 Alkaline Phosphatase 57 U/L 34-104 Alt 33 U/L 7-52 Ast 27 U/L 13-39 Egfr Non- 64.7 >60 Egfr 83.2 >60 17 CD4/CD8 T-Cell Count 10/24/2016 Absolute CD45 Count 1.72 thou/mcL 0.82- 2.84 % CD3 91 % 58-86 % CD4 12 % 32-64 % CD8 79 % 8-40 CD3 1556 cells/L 550-2202 CD4 213 cells/L 365-1437 CD8 1361 cells/L 80-846 H/S Ratio 0.2 >=0.9 CD4 Reviewed By See Comment 18 Laboratory test finding 10/24/2016 Syphillis Igg Nonreactive Nonreactive 19 W/Reflex RPR HCV Rna Genotype 1 Ns5a 10/24/2016 HCV NS5a Subtype 1a Drug Resist HCV Daclatasvir Resistance NOT PREDICTED HCV Ledipasvir Resistance NOT PREDICTED Ombitasvir Resistance NOT PREDICTED HCV Elbasvir Resistance NOT PREDICTED HCV Velpatasvir Resistance NOT PREDICTED 20 Laboratory test finding 08/07/2016 Hepatitis C Rna Quant [id number] IU/mL Undetected 21 CBC Auto Diff 08/07/2016 White Blood Count 4.4 10^3/uL 3.5-10.8 Red Blood Count 4.01 10^6/uL 4.0-5.4 Hemoglobin 12.1 g/dL Low 14.0-18.0 Hematocrit 37 % Low 42-52 Mean Corpuscular Volume 92 fL 80-94 Mean Corpuscular Hemoglobin 30 pg 27-31 Mean Corpuscular HGB Conc 33 g/dL 31-36 Red Cell Distribution Width 15 % 10.5-15 Platelet Count 158 10^3/uL 150-450 Mean Platelet Volume 9 um3 7.4-10.4 Abs Neutrophils 1.6 10^3/uL 1.5-7.7 Abs Lymphocytes 2.1 10^3/uL 1.0-4.8 Abs Monocytes 0.6 10^3/uL 0-0.8 Abs Eosinophils 0.1 10^3/uL 0-0.6 Abs Basophils 0 10^3/uL 0-0.2 Abs Nucleated RBC 0.01 10^3/uL Granulocyte % 35.4 % Low 38-83 Lymphocyte % 48.4 % High 25-47 Monocyte % 13.9 % High 1-9 Eosinophil % 1.9 % 0-6 Basophil % 0.4 % 0-2 Nucleated Red Blood Cells % 0.2 Comp Metabolic Panel 08/07/2016 Sodium 134 mmol/L 133-145 Potassium 4.3 mmol/L 3.5-5.0 Chloride 104 mmol/L 101-111 Co2 Carbon Dioxide 26 mmol/L 22-32 Anion Gap 4 mmol/L 2-11 Glucose 85 mg/dL 70-100 Blood Urea Nitrogen 18 mg/dL 6-24 Creatinine 1.13 mg/dL 0.67-1.17 BUN/Creatinine Ratio 15.9 8-20 Calcium 9.0 mg/dL 8.6-10.3 Total Protein 8.3 g/dL 6.4-8.9 Albumin 3.6 g/dL 3.2-5.2 Globulin 4.7 g/dL High 2-4 Albumin/Globulin Ratio 0.8 Low 1-3 Total Bilirubin 0.40 mg/dL 0.2-1.0 Alkaline Phosphatase 69 U/L 34-104 Alt 44 U/L 7-52 Ast 36 U/L 13-39 Egfr Non- 65.3 >60 Egfr 84.0 >60 22 HIV-1 Rna QNT By PCR Sli 08/07/2016 HIV-1 Rna (PCR) 642 copies/mL Undetected 23 CD4/CD8 T-Cell Count 08/07/2016 Absolute CD45 Count 2.17 thou/mcL 0.82- 2.84 % CD3 91 % 58-86 % CD4 13 % 32-64 % CD8 79 % 8-40 CD3 1979 cells/L 550-2202 CD4 289 cells/L 365-1437 CD8 1712 cells/L 80-846 H/S Ratio 0.2 >=0.9 CD4 Reviewed By See Comment 24 Lipid Profile (Trig/Chol/HDL) 08/07/2016 Triglycerides 119 mg/dL 25 Cholesterol 154 mg/dL 26 HDL Cholesterol 33.2 mg/dL 27 LDL Cholesterol 97 mg/dL 28 Laboratory test finding 08/07/2016 Hepatitis C Genotype 1a Undetected 29 Urinalysis Profile 07/03/2016 Urine Color Yellow Urine Appearance Cloudy Urine Specific [place] 1.005 Low 1.010-1.030 Urine pH 5.0 5-9 Urine Urobilinogen Negative Negative Urine Ketones Negative Negative Urine Protein 2+(100 mg/dL) Negative Urine Leukocytes 3+ Negative Urine Blood 3+ Negative Urine Nitrite Negative Negative Urine Bilirubin Negative Negative Urine Glucose Negative Negative Urine White Blood Cell 3+(>20/hpf) Absent Urine Red Blood Cell 3+(>10/hpf) Absent Urine Bacteria Absent Absent Urine Squamous Epithelial Cell Present Absent Urine Transitional Epithelial Present Absent Urine Culture And Sensitivities 07/03/2016 Urine Culture SEE RESULT BELOW 30 Urinalysis Profile 06/20/2016 Urine Color Yellow Urine Appearance Cloudy Urine Specific [place] 1.015 1.010-1.030 Urine pH 5.0 5-9 Urine Urobilinogen Negative Negative Urine Ketones Negative Negative Urine Protein 2+(100 mg/dL) Negative Urine Leukocytes 3+ Negative Urine Blood 3+ Negative Urine Nitrite Positive Negative Urine Bilirubin Negative Negative Urine Glucose Negative Negative Urine White Blood Cell 3+(>20/hpf) Absent Urine Red Blood Cell 3+(>10/hpf) Absent Urine Bacteria Absent Absent Urine Culture And 06/20/2016 Urine Culture SEE RESULT BELOW 31 Sensitivities CBC Auto Diff 05/23/2016 White Blood Count 6.6 10^3/uL 3.5-10.8 Red Blood Count 4.09 10^6/uL 4.0-5.4 Hemoglobin 12.5 g/dL Low 14.0-18.0 Hematocrit 38 % Low 42-52 Mean Corpuscular Volume 92 fL 80-94 Mean Corpuscular Hemoglobin 31 pg 27-31 Mean Corpuscular HGB Conc 33 g/dL 31-36 Red Cell Distribution Width 15 % 10.5-15 Platelet Count 169 10^3/uL 150-450 Mean Platelet Volume 8 um3 7.4-10.4 Abs Neutrophils 2.3 10^3/uL 1.5-7.7 Abs Lymphocytes 3.3 10^3/uL 1.0-4.8 Abs Monocytes 0.8 10^3/uL 0-0.8 Abs Eosinophils 0.2 10^3/uL 0-0.6 Abs Basophils 0 10^3/uL 0-0.2 Abs Nucleated RBC 0.01 10^3/uL Granulocyte % 35.4 % Low 38-83 Lymphocyte % 49.7 % High 25-47 Monocyte % 11.9 % High 1-9 Eosinophil % 2.3 % 0-6 Basophil % 0.7 % 0-2 Nucleated Red Blood Cells % 0.2 CBC Auto Diff 02/27/2016 White Blood Count 8.1 10^3/uL 3.5-10.8 Red Blood Count 4.00 10^6/uL 4.0-5.4 Hemoglobin 11.9 g/dL Low 14.0-18.0 Hematocrit 36 % Low 42-52 Mean Corpuscular Volume 90 fL 80-94 Mean Corpuscular Hemoglobin 30 pg 27-31 Mean Corpuscular HGB Conc 33 g/dL 31-36 Red Cell Distribution Width 13 % 10.5-15 Platelet Count 172 10^3/uL 150-450 Mean Platelet Volume 9 um3 7.4-10.4 Abs Neutrophils 3.9 10^3/uL 1.5-7.7 Abs Lymphocytes 3.4 10^3/uL 1.0-4.8 Abs Monocytes 0.7 10^3/uL 0-0.8 Abs Eosinophils 0.1 10^3/uL 0-0.6 Abs Basophils 0 10^3/uL 0-0.2 Abs Nucleated RBC 0.01 10^3/uL Granulocyte % 48.4 % 38-83 Lymphocyte % 42.1 % 25-47 Monocyte % 8.2 % 1-9 Eosinophil % 1.0 % 0-6 Basophil % 0.3 % 0-2 Nucleated Red Blood Cells % 0.1 CD4/CD8 T-Cell Count 02/27/2016 Absolute CD45 Count 3.95 thou/mcL 0.82- 2.84 % CD3 93 % 58-86 % CD4 8 % 32-64 % CD8 85 % 8-40 CD3 3679 cells/L 550-2202 CD4 323 cells/L 365-1437 CD8 3365 cells/L 80-846 H/S Ratio 0.1 >=0.9 CD4 Reviewed By See Comment 32 Quantiferon Gold TB 02/27/2016 M tuberculosis by Quantiferon TNP () 33 TB Ag minus Nil Result TNP () 34 TB Mitogen minus Nil Result TNP () 35 TB Nil Result TNP () 36 Laboratory test finding 02/27/2016 Syphillis Igg Nonreactive Nonreactive 37 W/Reflex RPR Hepatitis C Rna Quant [id number] IU/mL Undetected 38 [id number]-B [id number] Genotype 10/27/2015 Hla-B [id number] Result Negative Hla-B 5701 Interpretation See Comment 39 Hla-B [id number] Reviewed By HERBERT ROQUE <SEE NOTE> 40 HIV-1 Rna W/Reflex 10/27/2015 HIV-1 Rna (PCR) [id number] copies/mL Undetected 41 Genotype HIV-1 Genotype Drug Resistance SEE COMMENT 42 Laboratory test 10/27/2015 Syphillis Igg Nonreactive Nonreactive 43 finding W/Reflex RPR Laboratory test 04/15/2015 Urine Culture And SEE RESULT BELOW 44 finding Sensitivities Urinalysis Profile 04/15/2015 Urine Color Yellow Urine Appearance Cloudy Urine Specific [place] 1.018 1.010-1.030 Urine pH 6.0 5-9 Urine Urobilinogen Negative Negative Urine Ketones Negative Negative Urine Protein 1+(30 mg/dL) Negative Urine Leukocytes Trace Negative Urine Blood 3+ Negative Urine Nitrite Negative Negative Urine Bilirubin Negative Negative Urine Glucose Negative Negative Urine White Blood Cell 3+(>20/hpf) Absent Urine Red Blood Cell 3+(>10/hpf) Absent Urine Bacteria Absent Absent Urine Squamous Epithelial Cell Present Absent Laboratory test finding 03/16/2015 Urine Culture And SEE RESULT BELOW 45 Sensitivities Urinalysis Profile 03/16/2015 Urine Color [place] Urine Appearance Cloudy Urine Specific [place] 1.019 1.010-1.030 Urine pH 6.0 5-9 Urine Urobilinogen Positive Negative Urine Ketones Negative Negative Urine Protein 2+(100 mg/dL) Negative Urine Leukocytes 2+ Negative Urine Blood 3+ Negative Urine Nitrite Positive Negative Urine Bilirubin Negative Negative Urine Glucose Negative Negative Urine White Blood Cell 3+(>20/hpf) Absent Urine Red Blood Cell 3+(>10/hpf) Absent Urine Bacteria Absent Absent Urine Squamous Epithelial Cell Present Absent Urinalysis Profile 02/21/2015 Urine Color Yellow Urine Appearance Cloudy Urine Specific [place] 1.017 1.010-1.030 Urine pH 6.0 5-9 Urine Urobilinogen Negative Negative Urine Ketones Negative Negative Urine Protein Negative Negative Urine Leukocytes 1+ Negative Urine Blood 3+ Negative Urine Nitrite Negative Negative Urine Bilirubin Negative Negative Urine Glucose Negative Negative Urine White Blood Cell 3+(>20/hpf) Absent Urine Red Blood Cell 3+(>10/hpf) Absent Urine Bacteria Absent Absent Urine Squamous Epithelial Cell Present Absent Urine Microalbumin Random 02/21/2015 Ur Microalbumin (mg/L) 15.0 mg/L Urine Creatinine 143.62 mg/dL Urine Microalbumin/Creatinine 10.4 ug/mg <31 Laboratory test 02/21/2015 Urine Culture And SEE RESULT 46 finding Sensitivities BELOW CBC Auto Diff 12/01/2014 White Blood Count 3.7 10^3/uL Low 4.8-10.8 Red Blood Count 4.52 10^6/uL 4.0-5.4 Hemoglobin 13.4 g/dL Low 14.0-18.0 Hematocrit 42 % 42-52 Mean Corpuscular Volume 92 fL 80-94 Mean Corpuscular Hemoglobin 30 pg 27-31 Mean Corpuscular HGB Conc 32 g/dL 31-36 Red Cell Distribution Width 14 % 10.5-15 Platelet Count 110 10^3/uL Low 150-450 Mean Platelet Volume 9 um3 7.4-10.4 Abs Neutrophils 1.4 10^3/uL Low 1.5-7.7 Abs Lymphocytes 1.9 10^3/uL 1.0-4.8 Abs Monocytes 0.3 10^3/uL 0-0.8 Abs Eosinophils 0.1 10^3/uL 0-0.6 Abs Basophils 0 10^3/uL 0-0.2 Abs Nucleated RBC 0.01 10^3/uL Granulocyte % 37.3 % Low 38-83 Lymphocyte % 52.6 % High 25-47 Monocyte % 7.8 % 1-9 Eosinophil % 1.8 % 0-6 Basophil % 0.5 % 0-2 Nucleated Red Blood Cells % 0.2 Liver Function Panel 12/01/2014 Total Protein 8.8 g/dL 6.4-8.9 Albumin 3.3 g/dL 3.2-5.2 Globulin 5.5 g/dL High 2-4 Albumin/Globulin Ratio 0.6 Low 1-3 Total Bilirubin 0.50 mg/dL 0.2-1.0 Direct Bilirubin 0.20 mg/dL High 0.03-0.18 Indirect Bilirubin 0.3 mg/dL 0.3-1.0 Alkaline Phosphatase 56 U/L 34-104 Alt 21 U/L 7-52 Ast 32 U/L 13-39 CBC No Diff 11/10/2014 White Blood Count 3.9 10^3/uL Low 4.8-10.8 47 Red Blood Count 4.63 10^6/uL 4.0-5.4 47 Hemoglobin 13.9 g/dL Low 14.0-18.0 47 Hematocrit 43 % 42-52 47 Mean Corpuscular Volume 92 fL 80-94 47 Mean Corpuscular Hemoglobin 30 pg 27-31 47 Mean Corpuscular HGB Conc 33 g/dL 31-36 47 Red Cell Distribution Width 14 % 10.5-15 47 Platelet Count 115 10^3/uL Low 150-450 47 Mean Platelet Volume 9 um3 7.4-10.4 47 Laboratory test finding 11/10/2014 Inr/Protime 1.04 0.78-1.07 47, 48 Comp Metabolic Panel 11/10/2014 Sodium 134 mmol/L 133-145 47 Potassium 3.9 mmol/L 3.5-5.0 47 Chloride 102 mmol/L 101-111 47 Co2 Carbon Dioxide 29 mmol/L 22-32 47 Anion Gap 3 mmol/L 2-11 47 Glucose 78 mg/dL 70-100 47 Blood Urea Nitrogen 8 mg/dL 6-24 47 Creatinine 0.66 mg/dL Low 0.67-1.17 47 BUN/Creatinine Ratio 12.1 8-20 47 Calcium 8.6 mg/dL 8.6-10.3 47 Total Protein 9.4 g/dL High 6.4-8.9 47 Albumin 3.6 g/dL 3.2-5.2 47 Globulin 5.8 g/dL High 2-4 47 Albumin/Globulin Ratio 0.6 Low 1-3 47 Total Bilirubin 0.50 mg/dL 0.2-1.0 47 Alkaline Phosphatase 60 U/L 34-104 47 Alt 19 U/L 7-52 47 Ast 31 U/L 13-39 47 Egfr Non- 122.3 >60 47 Egfr 157.3 >60 47, 49 Urinalysis Profile 11/10/2014 Urine Color Yellow 47 Urine Appearance Clear 47 Urine Specific [place] 1.014 1.010-1.030 47 Urine pH 6.0 5-9 47 Urine Urobilinogen Positive Negative 47 Urine Ketones Negative Negative 47 Urine Protein Negative Negative 47 Urine Leukocytes Trace Negative 47 Urine Blood 3+ Negative 47 Urine Nitrite Negative Negative 47 Urine Bilirubin Negative Negative 47 Urine Glucose Negative Negative 47 Urine White Blood Cell 1+(6-10/hpf) Absent 47 Urine Red Blood Cell 3+(>10/hpf) Absent 47 Urine Bacteria Absent Absent 47 Urine Squamous Epithelial Cell Present Absent 47 Type & Screen 11/10/2014 Patient Blood Type O Positive 47 Antibody Screen NEGATIVE 47 Laboratory test 11/10/2014 Urine Culture And SEE RESULT 47, 50 finding Sensitivities BELOW Laboratory test 09/09/2014 Hepatitis C Rna Quant [id number] IU/mL Undetected 51 finding Hepatitis C Genotype 1a Undetected 52 Lipid Profile (Trig/Chol/HDL) 08/27/2014 Triglycerides 75 mg/dL 53 Cholesterol 124 mg/dL 54 HDL Cholesterol 23.5 mg/dL 55 LDL Cholesterol 86 mg/dL 56 Comp Metabolic Panel 08/27/2014 Sodium 132 mmol/L Low 133-145 Potassium 4.1 mmol/L 3.5-5.0 Chloride 103 mmol/L 101-111 Co2 Carbon Dioxide 27 mmol/L 22-32 Anion Gap 2 mmol/L 2-11 Glucose 88 mg/dL 70-100 Blood Urea Nitrogen 8 mg/dL 6-24 Creatinine 0.65 mg/dL Low 0.67-1.17 BUN/Creatinine Ratio 12.3 8-20 Calcium 8.8 mg/dL 8.6-10.3 Total Protein 9.2 g/dL High 6.4-8.9 Albumin 3.4 g/dL 3.2-5.2 Globulin 5.8 g/dL High 2-4 Albumin/Globulin Ratio 0.6 Low 1-3 Total Bilirubin 0.70 mg/dL 0.2-1.0 Alkaline Phosphatase 63 U/L 34-104 Alt 24 U/L 7-52 Ast 34 U/L 13-39 Egfr Non- 124.5 >60 Egfr 160.1 >60 57 Laboratory test 08/27/2014 Hepatitis C Antibody High Reactive Nonreactive 58 finding Urinalysis Profile 08/27/2014 Urine Color Anna Urine Appearance Cloudy Urine Specific [place] 1.018 1.010-1.030 Urine pH 5.0 5-9 Urine Urobilinogen Positive Negative Urine Ketones Negative Negative Urine Protein 1+(30 mg/dL) Negative Urine Leukocytes 2+ Negative Urine Blood 2+ Negative Urine Nitrite Positive Negative Urine Bilirubin Negative Negative Urine Glucose Negative Negative Urine White Blood Cell 3+(>20/hpf) Absent Urine Red Blood Cell 3+(>10/hpf) Absent Urine Bacteria Absent Absent Urine Squamous Epithelial Cell Present Absent Laboratory test 08/27/2014 Urine Culture And SEE RESULT 59 finding Sensitivities BELOW CBC Auto Diff 04/22/2013 White Blood Count 3.8 10^3/uL Low 4.8-10.8 Red Blood Count 4.55 10^6/uL 4.0-5.4 Hemoglobin 14.3 g/dL 14.0-18.0 Hematocrit 42 % 42-52 Mean Corpuscular Volume 92 fL 80-94 Mean Corpuscular Hemoglobin 32 pg High 27-31 Mean Corpuscular HGB Conc 34 g/dL 31-36 Red Cell Distribution Width 13 % 10.5-15 Platelet Count 123 10^3/uL Low 150-450 Mean Platelet Volume 10 um3 7.4-10.4 Abs Neutrophils 1.4 10^3/uL Low 1.5-7.7 Abs Lymphocytes 1.8 10^3/uL 1.0-4.8 Abs Monocytes 0.4 10^3/uL 0-0.8 Abs Eosinophils 0.1 10^3/uL 0-0.6 Abs Basophils 0 10^3/uL 0-0.2 Abs Nucleated RBC 0.01 10^3/uL Comp Metabolic Panel 04/22/2013 Sodium 135 mmol/L 133-145 Potassium 4.8 mmol/L 3.5-5.0 Chloride 105 mmol/L 101-111 Co2 Carbon Dioxide 28.0 mmol/L 22-32 Anion Gap 2.0 mmol/L 2-11 Glucose 83 mg/dL 70-100 Blood Urea Nitrogen 8 mg/dL 6-24 Creatinine 0.60 mg/dL 0.50-1.40 BUN/Creatinine Ratio 13.3 8-20 Calcium 9.0 mg/dL 8.1-9.9 Total Protein 7.9 g/dL 6.2-8.1 Albumin 3.1 g/dL Low 3.2-5.2 Globulin 4.8 g/dL High 2-4 Albumin/Globulin Ratio 0.6 Low 1-3 Total Bilirubin 0.4 mg/dL 0.4-1.5 Alkaline Phosphatase 59 U/L 30-110 Alt 41 U/L 14-54 Ast 61 U/L High 12-42 Egfr Non- 137.4 >60 Egfr 176.7 >60 60 Laboratory test 04/22/2013 Erythrocyte Sed Rate 29 mm/Hr High 0-20 finding Urine Microscopic 04/22/2013 Urine WBC 3+ (>10 /hpf) None Seen Urine RBC 2+ (>3-10 /hpf) None Seen Urine Epithelial Cells 1+ Squamous /hpf None Seen Bacteria Urine 2+ None Seen Urine Culture And Sensitivities 04/22/2013 Urine Culture (SEE NOTE) 61 Urinalysis 04/22/2013 Urine Color Yellow Urine Appearance Cloudy Urine Specific [place] 1.020 1.010-1.030 Urine Esterase 3+ Negative Urine Nitrate Positive Negative Urine Urobilinogen Negative E.U./dL Negative Urine Protein Trace mg/dL Negative Urine pH 6.0 5-9 Urine Blood 2+ Negative Urine Ketones Negative mg/dL Negative Urine Bilirubin Negative Negative Urine Glucose Negative mg/dL Negative Ua Routine 04/22/2013 Ua Specific [place] 1.025 Ua PH 5.0 Ua Color dark yellow Ua Appera cloudy Ua WBC large 500 Ua Protein neg Ua Glucose neg Ua Ketones neg Ua Bilirubin small Ua Urobilinogen normal Ua Nitrite positive Ua Occult Blood large 200 Manual Differential 04/22/2013 Neutrophil % 40 % 38-83 Lymphocytes % 50 % High 25-47 Monocytes % 5 % 0-13 Eosinophils % 5 % 0-6 RBC Morphology Normal Normal 1 Result in log IU/mL is Undetected. ADDITIONAL INFORMATION The quantification range of this assay is 15 to 100,000,000 IU/mL (1.18 log to 8.00 log IU/mL). Testing was performed using the seema HCV test ([employer] with the seema 6800 System. Test Performed by: [id number] [place] [address] 2 Because ethnic data is not always readily available, this report includes an eGFR for both -Americans and non- Americans. The National Kidney Disease Education Program (NKDEP) does not endorse the use of the MDRD equation for patients that are not between the ages of 18 and 70, are , have extremes of body size, muscle mass, or nutritional status, or are non- or non-. According to the National Kidney Foundation, irrespective of diagnosis, the stage of the disease is based on the level of kidney function: Stage Description GFR(mL/min/1.73 m(2)) 1 Kidney damage with normal or decreased GFR 90 2 Kidney damage with mild decrease in GFR 60-89 3 Moderate decrease in GFR 30-59 4 Severe decrease in GFR 15-29 5 Kidney failure <15 (or dialysis) 3 Result in log copies/mL is Undetected. ADDITIONAL INFORMATION The quantification range of this assay is 20 to 10,000,000 copies/mL (1.30 log to 7.00 log copies/mL). Testing was performed using the seema HIV-1 test ([employer] with the seema Transmetrics0 System. This test has been modified from the taper/finisher's instructions. Its performance characteristics were determined by [facility] in a manner consistent with CLIA requirements. This test has not been cleared or approved by the U.S. Food and Drug Administration. Test Performed by: [place] [address] 4 Warning: A positive result is not useful for establishing a diagnosis of syphilis. In most situations, such a result may reflect a prior treated infection; a negative result can exclude a diagnosis of syphilis except for incubating or early primary disease. 5 No interferon-gamma response to M. tuberculosis antigens was detected. Infection with M. tuberculosis is unlikely. A single negative result does not exclude infection with M. tuberculosis. In patients at high risk for M.tuberculosis infection, a second test should be considered in accordance with the 2017 ATS/IDSA/CDC Clinical Practice Guidelines for Diagnosis of Tuberculosis in Adults and Children [Marley MCCLENDON et. al. Clin. Infect. Dis. 2017;64(2):111-115]. 6 Test Performed by: [place] [address] 7 moderate fibrosis FibroTest estimates liver fibrosis FibroTest Score Stage Interpretation 0.00-0.21 F0 no fibrosis 0.21-0.27 F0-F1 no fibrosis 0.27-0.31 F1 minimal fibrosis 0.31-0.48 F1-F2 minimal fibrosis 0.48-0.58 F2 moderate fibrosis 0.58-0.72 F3 advanced fibrosis 0.72-0.74 F3-F4 advanced fibrosis 0.74-1.00 F4 severe fibrosis (Cirrhosis) 8 ActiTest estimates necroinflammatory activity ActiTest Score Grade Interpretation 0.00-0.17 A0 no activity 0.17-0.29 A0-A1 no activity 0.29-0.36 A1 minimal activity 0.36-0.52 A1-A2 minimal activity 0.52-0.60 A2 significant activity 0.60-0.62 A2-A3 significant activity 0.62-1.00 A3 severe activity 9 The reliability of results is dependent on compliance with the preanalytical and analytical conditions recommended by [employer]. The tests have to be deferred for: acute hemolysis, acute hepatitis, acute inflammation, extra hepatic cholestasis. The advice of a specialist should be sought for interpretation in chronic hemolysis and Gilbert's syndrome. The test interpretation is not validated in liver transplant patients. Isolated extreme values of one of the components should lead to caution in interpreting the results. In case of discordance between a biopsy result and a test, it is recommended to seek advice of a specialist. The causes of these discordances could be due to a flaw of the test or to a flaw in the biopsy: i.e. a liver biopsy has a 33% variability rate for one fibrosis stage. FibroTest is interpretable for chronic hepatitis B and C, alcoholic and non alcoholic steatosis. ActiTest is interpretable for chronic hepatitis B and C. ADDITIONAL INFORMATION This test was developed and its performance characteristics determined by [facility] in a manner consistent with CLIA requirements. This test has not been cleared or approved by the U.S. Food and Drug Administration. 10 Test Performed by: [address] [address] 11 Because ethnic data is not always readily available, this report includes an eGFR for both -Americans and non- Americans. The National Kidney Disease Education Program (NKDEP) does not endorse the use of the MDRD equation for patients that are not between the ages of 18 and 70, are , have extremes of body size, muscle mass, or nutritional status, or are non- or non-. According to the National Kidney Foundation, irrespective of diagnosis, the stage of the disease is based on the level of kidney function: Stage Description GFR(mL/min/1.73 m(2)) 1 Kidney damage with normal or decreased GFR 90 2 Kidney damage with mild decrease in GFR 60-89 3 Moderate decrease in GFR 30-59 4 Severe decrease in GFR 15-29 5 Kidney failure <15 (or dialysis) 12 >100 to <200 pg/mL: likely compensated congestive heart failure (CHF) 200 to 400 pg/mL: likely moderate CHF >400 pg/mL: likely moderate to severe CHF 13 Result in log copies/mL is Undetected. ADDITIONAL INFORMATION The quantification range of this assay is 20 to 10,000,000 copies/mL (1.30 log copies/mL to 7.00 log copies/mL). Testing was performed by the [employer] AmpliPrep/SEEMA TaqMan HIV-1 Test version 2.0 ([employer] This test has been modified from the taper/finisher's instructions. Its performance characteristics were determined by [facility] in a manner consistent with CLIA requirements. This test has not been cleared or approved by the U.S. Food and Drug Administration. Test Performed by: [facility] - [id number] [place] [address] 14 Because ethnic data is not always readily available, this report includes an eGFR for both -Americans and non- Americans. The National Kidney Disease Education Program (NKDEP) does not endorse the use of the MDRD equation for patients that are not between the ages of 18 and 70, are , have extremes of body size, muscle mass, or nutritional status, or are non- or non-. According to the National Kidney Foundation, irrespective of diagnosis, the stage of the disease is based on the level of kidney function: Stage Description GFR(mL/min/1.73 m(2)) 1 Kidney damage with normal or decreased GFR 90 2 Kidney damage with mild decrease in GFR 60-89 3 Moderate decrease in GFR 30-59 4 Severe decrease in GFR 15-29 5 Kidney failure <15 (or dialysis) 15 RESULT: Reviewed by: Gamaliel Kong, Ph.D., D([facility]), FAAAAI ADDITIONAL INFORMATION Reference values implemented July 29, 2012. This test was developed using an analyte specific reagent. Its performance characteristics were determined by [facility] in a manner consistent with CLIA requirements. This test has not been cleared or approved by the U.S. Food and Drug Administration. Test Performed by: [place] [address] 16 Result in log copies/mL is Undetected. ADDITIONAL INFORMATION The quantification range of this assay is 20 to 10,000,000 copies/mL (1.30 log copies/mL to 7.00 log copies/mL). Testing was performed by the SEEMA AmpliPrep/SEEMA TaqMan HIV-1 Test version 2.0 ([employer] This test has been modified from the taper/finisher's instructions. Its performance characteristics were determined by [facility] in a manner consistent with CLIA requirements. This test has not been cleared or approved by the U.S. Food and Drug Administration. Test Performed by: [facility] [place] [id number] 17 Because ethnic data is not always readily available, this report includes an eGFR for both -Americans and non- Americans. The National Kidney Disease Education Program (NKDEP) does not endorse the use of the MDRD equation for patients that are not between the ages of 18 and 70, are , have extremes of body size, muscle mass, or nutritional status, or are non- or non-. According to the National Kidney Foundation, irrespective of diagnosis, the stage of the disease is based on the level of kidney function: Stage Description GFR(mL/min/1.73 m(2)) 1 Kidney damage with normal or decreased GFR 90 2 Kidney damage with mild decrease in GFR 60-89 3 Moderate decrease in GFR 30-59 4 Severe decrease in GFR 15-29 5 Kidney failure <15 (or dialysis) 18 RESULT: Reviewed by: Khai Smith M.D. ADDITIONAL INFORMATION This test was developed using an analyte specific reagent. Its performance characteristics were determined by [facility] in a manner consistent with CLIA requirements. This test has not been cleared or approved by the U.S. Food and Drug Administration. Test Performed by: [place] [address] 19 Warning: A positive result is not useful for establishing a diagnosis of syphilis. In most situations, such a result may reflect a prior treated infection; a negative result can exclude a diagnosis of syphilis except for incubating or early primary disease. 20 Mutations Detected: NONE This assay is designed to amplify HCV genotypes 1a and 1b and may not successfully amplify other HCV genotypes. This test utilizes RT-PCR and DNA sequencing to detect the presence of treatment-emergent HCV NS5a variants associated with Ns5a inhibitor antiviral therapy. The clinical significance of NS5a resistance associated variants for antiviral therapy may vary according to the clinical status and antiviral treatment experience of the HCV-infected patient. Testing for NS5a resistance-associated variants prior to initiation of treatment with elbasvir plus grazoprevir in HCV genotype 1a infected patients is recommended. For further guidance consult with the package inserts of the applicable direct acting agents and guideline documents such as the AASLD and IDSA guidelines available at http://hcvguidelines.org. For additional information, please refer to http://education.[facility].Cswitch/faq/VMG698 This test was developed and its analytical performance characteristics have been determined by [facility]. It has not been cleared or approved by the FDA. This assay has been validated pursuant to the CLIA regulations and is used for clinical purposes. Test Performed by: [facility] [address] [place] [address] 21 Result in log IU/mL is 5.24. ADDITIONAL INFORMATION The quantification range of this assay is 15 to 100,000,000 IU/mL (1.18 log to 8.00 log IU/mL). Testing was performed by the SEEMA AmpliPrep/SEEMA TaqMan HCV Test, version 2.0 ([employer] Test Performed by: [place] [id number] 22 Because ethnic data is not always readily available, this report includes an eGFR for both -Americans and non- Americans. The National Kidney Disease Education Program (NKDEP) does not endorse the use of the MDRD equation for patients that are not between the ages of 18 and 70, are , have extremes of body size, muscle mass, or nutritional status, or are non- or non-. According to the National Kidney Foundation, irrespective of diagnosis, the stage of the disease is based on the level of kidney function: Stage Description GFR(mL/min/1.73 m(2)) 1 Kidney damage with normal or decreased GFR 90 2 Kidney damage with mild decrease in GFR 60-89 3 Moderate decrease in GFR 30-59 4 Severe decrease in GFR 15-29 5 Kidney failure <15 (or dialysis) 23 Result in log copies/mL is 2.81. ADDITIONAL INFORMATION The quantification range of this assay is 20 to 10,000,000 copies/mL (1.30 log copies/mL to 7.00 log copies/mL). Testing was performed by the SEEMA AmpliPrep/SEEMA TaqMan HIV-1 Test version 2.0 ([employer] This test has been modified from the taper/finisher's instructions. Its performance characteristics were determined by [facility] in a manner consistent with CLIA requirements. This test has not been cleared or approved by the U.S. Food and Drug Administration. Test Performed by: [facility] [place] [id number] RESULT: Reviewed by: Gamaliel Kong, Ph.D., D([facility]), FAAAAI ADDITIONAL INFORMATION This test was developed using an analyte specific reagent. Its performance characteristics were determined by [facility] in a manner consistent with CLIA requirements. This test has not been cleared or approved by the U.S. Food and Drug Administration. Test Performed by: [facility] [address] 25 Desirable <150 Borderline high 150-199 High 200-499 Very High >500 26 Desirable <200 Borderline high 200-239 High >239 27 Low <40 Desirable: 40-60 High: >60 28 Desirable: <100 mg/dL Near Optimal: 100-129 mg/dL Borderline High: 130-159 mg/dL High: 160-189 mg/dL Very High: >189 mg/dL 29 ADDITIONAL INFORMATION This test was performed using the [employer] RealTime HCV Genotype II assay ([employer], [place]). Test Performed by: [facility] - [address] [address] 30 SEE RESULT BELOW Name: TRINI RODRIGUEZ : [address]: Chicho Pelletier MD Acct: [id number] Unit: [id number] AGE: 66 Location: ED Re07/03/16 SEX: M Status: DEP ER SPEC: [id number] MICHELLE: 07/03/[address]: Chicho Pelletier MD REQ: [id number] RECD: 07/03/16 STATUS: RES OTHR DR: Pb Vann III, MD _ SOURCE: URINE SPDESC: ORDERED: Urine Culture Procedure Result Reported Site Urine Culture Preliminary 07/04/16- 1218 ML Organism 1 STAPHYLOCOCCUS AUREUS Vantage Count 25-50,000 (Moderate) CFU/ML * ML - MAIN LAB ([facility]) . END OF REPORT * ML=Testing performed at Main Lab DEPARTMENT OF PATHOLOGY, [address], [place], [place] [address] Benjamin Fonseca M.D. Director [facility] # [id number] 31 SEE RESULT BELOW Name: TRINI RODRIGUEZ : [address]: Ana Maria Adrian MD Acct: [id number] Unit: [id number] AGE: 66 Location: ED Re06/20/16 SEX: M Status: DEP ER SPEC: [id number] MICHELLE: 06/20/[address]: Madhu CHANEY REQ: [id number] RECD: 06/20/16 STATUS: SEDA JURADO DR: Ana Maria Vann III, MD _ SOURCE: URINE SPDESC: ORDERED: Urine Culture Procedure Result Reported Site Urine Culture Final 06/22/16- 0806 ML Organism 1 MRSA Vantage Count >100,000 (Many) CFU/ML MRSA:Consistent with previous results. 1. MRSA M.I.C. RX --------- ------ Penicillin >=0.5 R Gentamicin <=0.5 S Linezolid 2 S Nitrofurantoin <=16 S Oxacillin >=4 R * Quinupristin/Dalfopristin <=0.25 S Rifampin <=0.5 S Tetracycline <=1 S Doxycycline - Deduced S * Minocycline - Deduced S Trimethoprim/Sulfamethoxazole <=10 S Vancomycin 1 S Imipenem-Deduced R * Ampicillin/Sulbactam-Deduced R Cefazolin-Deduced R CONTINUED ON NEXT PAGE * ML=Testing performed at Main Lab DEPARTMENT OF PATHOLOGY, [address] [place] [address] Benjamin Fonseca M.D. Director [facility] # [id number] Patient: TRINI RODRIGUEZ [id number] (Continued) Specimen: [id number] Collected: 06/20/16 Received: 06/20/16 (Continued) Procedure Result Reported Site Urine Culture Final (continued) * These antibiotics are not available in the [facility] Formulary Contact the Microbiology Department for any additional antibiotic reporting. * ML - MAIN LAB ([facility]) . END OF REPORT * ML=Testing performed at Main Lab DEPARTMENT OF PATHOLOGY, [address] [place] [address] Benjamin Fonseca M.D. Director [facility] # [id number] 32 RESULT: Reviewed by: Gamaliel Kong, Ph.D., D([facility]), FAAAAI ADDITIONAL INFORMATION This test was developed using an analyte specific reagent. Its performance characteristics were determined by [facility] in a manner consistent with CLIA requirements. This test has not been cleared or approved by the U.S. Food and Drug Administration. Test Performed by: [place] [address] Mig Welder: Ken Rudd II, M.D., Ph.D. 33 QuantiFERON-TB Gold In-Tube, B was cancelled on 02/29/2016 at 12:43; One or more of collection tubes was under-filled (<0.8 mL sample). 34 QuantiFERON-TB Gold In-Tube, B was cancelled on 02/29/2016 at 12:43; One or more of collection tubes was under-filled (<0.8 mL sample). 35 QuantiFERON-TB Gold In-Tube, B was cancelled on 02/29/2016 at 12:43; One or more of collection tubes was under-filled (<0.8 mL sample). 36 QuantiFERON-TB Gold In-Tube, B was cancelled on 02/29/2016 at 12:43; One or more of collection tubes was under-filled (<0.8 mL sample). Test Performed by: [place] [address] Mig Welder: Ken Rudd II, M.D., Ph.D. 37 Warning: A positive result is not useful for establishing a diagnosis of syphilis. In most situations, such a result may reflect a prior treated infection; a negative result can exclude a diagnosis of syphilis except for incubating or early primary disease. 38 Result in log IU/mL is 6.08. ADDITIONAL INFORMATION The quantification range of this assay is 15 to 100,000,000 IU/mL (1.18 log to 8.00 log IU/mL). Testing was performed by the SEEMA AmpliPrep/SEEMA TaqMan HCV Test, version 2.0 ([employer] Test Performed by: [place] [address] Mig Welder: Ken Rudd II, M.D., Ph.D. 39 This patient was not found to have the HLA-B*5701 allele. This patient is at no greater risk than the general population for the development of abacavir hypersensitivity reaction (HSR). Though the likelihood of abacavir HSR is lower in this patient than in someone with the HLA-B*5701 allele, a negative result does not preclude the development of an allergic response to abacavir and cannot substitute for clinical vigilance whenever abacavir therapy is administered. Should abacavir HSR develop, therapy should be discontinued immediately and permanently. ADDITIONAL INFORMATION The HLA-B*57:01 allele is detected by allele specific amplification (IMGT/HLA accession number [id number]). Screening for the HLA-B*57:01 allele is recommended by the FDA before initiating therapy with abacavir. Genotyping is also critical when there is a clinical history of, or when the physician suspects, an abacavir hypersensitivity reaction. However, FDA guidance states that, regardless of HLA-B*57:01 status, abacavir should be permanently discontinued if hypersensitivity cannot be ruled out, even when other diagnoses are possible. Since symptoms of abacavir hypersensitivity are often variable and non-specific and can imitate other conditions commonly seen in HIV patients on antiretroviral therapy, the phenotypic diagnosis of abacavir hypersensitivity can be challenging. For additional information regarding pharmacogenomic genes and their associated drugs, please see the Pharmacogenomic Associations Tables on the [employer] webpage, [email or web address].com.[email or web address]. This resource also includes information regarding enzyme inhibitors and inducers, as well as potential alternate drug choices. Please note that the information at this link is educational material intended for health lawn caretaker and may not be comprehensive. This educational material is not intended to supersede the care provider's experience and knowledge of her/his patient to establish a diagnosis or a treatment plan. All medications require careful clinical monitoring. Please contact the laboratory at for further information about pharmacogenomic testing. CAUTIONS: Rare or novel variants may be present that could lead to false negative or false positive results. There may be rare or novel HLA-B alleles which could interfere with this assay. There are currently no data indicating whether any other alleles or subtypes are associated with abacavir hypersensitivity. If results obtained do not match the clinical findings (phenotype), additional testing should be considered. Samples may contain donor DNA if obtained from patients who received heterologous blood transfusions or allogeneic blood or marrow transplantation. Results from samples obtained under these circumstances may not accurately reflect the recipient's genotype. For individuals who have received blood transfusions, the genotype usually reverts to that of the recipient within 6 weeks. The impact of blood or marrow transplantation on risk of abacavir hypersensitivity reactions is not defined in the literature. Laboratory developed test. 40 [address] SEGURA Test Performed by: [place] [address] Mig Welder: Ken Rudd II, M.D., Ph.D. 41 Result in log copies/mL is 5.12. ADDITIONAL INFORMATION The quantification range of this assay is 20 to 10,000,000 copies/mL (1.30 log copies/mL to 7.00 log copies/mL). Testing was performed by the SEEMA AmpliPrep/SEEMA TaqMan HIV-1 Test version 2.0 ([employer] Test Performed by: [place] [address] Mig Welder: Ken Rudd II, M.D., Ph.D. 42 HIV-1 Genotypic MN-RT Resistance, P HIV-1 Genotypic MN-RT Drug Resistance, P INTERP SDL Interpretation of following results: RESIST=Resistance SUSC=No evidence of resistance MN=Possible resistance Nucleos(t)elisha RT mutations See Below SDL Result: No relevant mutations detected Abacavir SUSC SDL Didanosine SUSC SDL Emtricitabine SUSC SDL Lamivudine SUSC SDL Stavudine SUSC SDL Tenofovir SUSC SDL Zidovudine SUSC SDL Nonnucleoside RT mutations See Below SDL Result: No relevant mutations detected Efavirenz SUSC SDL Etravirine SUSC SDL Nevirapine SUSC SDL Rilpivirine SUSC SDL Protease Mutations See Below SDL Result: No relevant mutations detected Atazanavir + Ritonavir SUSC SDL Darunavir + Ritonavir SUSC SDL Fosamprenavir + Ritonavir SUSC SDL Indinavir + Ritonavir SUSC SDL Lopinavir + Ritonavir SUSC SDL Nelfinavir SUSC SDL Saquinavir + Ritonavir SUSC SDL Tipranavir + Ritonavir SUSC SDL ADDITIONAL INFORMATION Testing was performed using a modification of the FDA-approved Lua HIV-1 Genotyping System, version 2.0 ([employer], [place]), and results were based on taper/finisher's most recent FDA-approved interpretive guidelines. Results obtained by different assay methods should not be used interchangeably. RECEIVED: 10/28/2015 13:13 REPORTED: 11/02/2015 10:45 43 Warning: A positive result is not useful for establishing a diagnosis of syphilis. In most situations, such a result may reflect a prior treated infection; a negative result can exclude a diagnosis of syphilis except for incubating or early primary disease. 44 SEE RESULT BELOW Name: TRINI RODRIGUEZ : [address]: Manny Shannon MD Acct: [id number] Unit: [id number] AGE: 64 Location: ED Re04/15/15 SEX: M Status: DEP ER SPEC: [id number] MICHELLE: 04/15/15 [facility] DR: Manny Shannon MD REQ: [id number] RECD: 04/15/15 STATUS: SEDA JURADO DR: Pb Vann III, MD _ SOURCE: URINE SPDESC: ORDERED: Urine Culture Procedure Result Reported Site Urine Culture Final 04/17/15932 ML Organism 1 NORMAL MAIDA Vantage Count 10-25,000 (Moderate) CFU/ML * ML - MAIN LAB ([facility]) . END OF REPORT * ML=Testing performed at Main Lab DEPARTMENT OF PATHOLOGY, [address] [place] [address] Benjamin Fonseca M.D. Director [facility] # [id number] 45 SEE RESULT BELOW Name: TRINI RODRIGUEZ : [address]: Ken Wolf MD Acct: [id number] Unit: [id number] AGE: 64 Location: ED Re03/16/15 SEX: M Status: DEP ER SPEC: [id number] MICHELLE: 03/16/[address]: Malia CHANEY REQ: [id number] RECD: 03/16/15 STATUS: SEDA JURADO DR: Pb Wolf MD _ SOURCE: URINE SPDESC: ORDERED: Urine Culture COMMENTS: MRSA Consistent with previous results. Procedure Result Reported Site Urine Culture Final 03/19/15- 0850 ML Organism 1 MRSA Vantage Count >100,000 (Many) CFU/ML 1. MRSA M.I.C. RX --------- ------ Penicillin >=0.5 R Gentamicin <=0.5 S Linezolid 2 S Nitrofurantoin <=16 S Oxacillin >=4 R * Quinupristin/Dalfopristin <=0.25 S Rifampin <=0.5 S Tetracycline <=1 S Doxycycline - Deduced S * Minocycline - Deduced S Trimethoprim/Sulfamethoxazole <=10 S Vancomycin 1 S Imipenem-Deduced R * Ampicillin/Sulbactam-Deduced R Cefazolin-Deduced R CONTINUED ON NEXT PAGE * ML=Testing performed at Main Lab DEPARTMENT OF PATHOLOGY, [address] [place] [address] Benjamin Fonseca M.D. Director [facility] # [id number] Patient: TRINI RODRIGUEZ [id number] (Continued) Specimen: [id number] Collected: 03/16/15 Received: 03/16/15-720 (Continued) Procedure Result Reported Site Urine Culture Final (continued) * These antibiotics are not available in the [facility] Formulary Contact the Microbiology Department for any additional antibiotic reporting. * ML - MAIN LAB ([facility]) . END OF REPORT * ML=Testing performed at Main Lab DEPARTMENT OF PATHOLOGY, [address] [place] [address] Benjamin Fonseca M.D. Director [facility] # [id number] 46 SEE RESULT BELOW Name: TRINI RODRIGUEZ : [address]: Pb Vann III, MD Acct: [id number] Unit: [id number] AGE: 64 Location: [facility] Re02/21/15 SEX: M Status: REG REF SPEC: [id number] MICHELLE: 02/21/15 [facility] DR: Pb Vann III, MD REQ: [id number] RECD: 02/21/15 STATUS: COMP _ SOURCE: URINE SPDESC: ORDERED: Urine Culture Procedure Result Verified Site Urine Culture Final 02/23/15726 ML No Growth Day 2 (<1,000 CFU/mL) * ML - MAIN LAB ([facility]) . END OF REPORT * ML=Testing performed at Main Lab DEPARTMENT OF PATHOLOGY, [address] [place] [address] Benjamin Fonseca M.D. Director [facility] # [id number] 47 AA SURGERY 11/16/14 48 AA SURGERY 11/16/14 49 Because ethnic data is not always readily available, this report includes an eGFR for both -Americans and non- Americans. The National Kidney Disease Education Program (NKDEP) does not endorse the use of the MDRD equation for patients that are not between the ages of 18 and 70, are , have extremes of body size, muscle mass, or nutritional status, or are non- or non-. According to the National Kidney Foundation, irrespective of diagnosis, the stage of the disease is based on the level of kidney function: Stage Description GFR(mL/min/1.73 m(2)) 1 Kidney damage with normal or decreased GFR 90 2 Kidney damage with mild decrease in GFR 60-89 3 Moderate decrease in GFR 30-59 4 Severe decrease in GFR 15-29 5 Kidney failure <15 (or dialysis) 50 SEE RESULT BELOW Name: WESTRINI : [address]: Eleazar Medina MD Acct: [id number] Unit: [id number] AGE: 64 Location: [facility] Re11/10/14 SEX: M Status: REG REF SPEC: [id number] MICHELLE: 11/10/14-1510 [facility] DR: Eleazar Medina MD REQ: [id number] RECD: 11/10/14 STATUS: COMP _ SOURCE: URINE [facility] [place]: ORDERED: Urine Culture Procedure Result Verified Site Urine Culture Final 11/13/14- 0931 ML Organism 1 MRSA Vantage Count 10-25,000 (Moderate) CFU/ML 1. MRSA M.I.C. RX --------- ------ Penicillin >=0.5 R Gentamicin <=0.5 S Linezolid 2 S Nitrofurantoin <=16 S Oxacillin >=4 R * Quinupristin/Dalfopristin <=0.25 S Rifampin <=0.5 S Tetracycline <=1 S Doxycycline - Deduced S * Minocycline - Deduced S Trimethoprim/Sulfamethoxazole <=10 S Vancomycin <=0.5 S Imipenem-Deduced R * Ampicillin/Sulbactam-Deduced R Cefazolin-Deduced R * These antibiotics are not available in the [facility] Formulary Contact the Microbiology Department for any additional antibiotic reporting. * ML - MAIN LAB ([facility]) . END OF REPORT * ML=Testing performed at Main Lab DEPARTMENT OF PATHOLOGY, [address] [place] [address] Benjamin Fonseca M.D. Director [facility] # [id number] 51 Result in log IU/mL is 6.22. ADDITIONAL INFORMATION The quantification range of this assay is 15 to 100,000,000 IU/mL (1.18 log to 8.00 log IU/mL). Testing was performed by the SEEMA AmpliPrep/SEEMA TaqMan HCV Test, version 2.0 ([employer] Test Performed by: [place] [address] Mig Welder: Ken Rudd II, M.D., Ph.D. 52 ADDITIONAL INFORMATION This test was performed using the [employer]legria RealTime HCV Genotype II assay ([employer], [place]). Test Performed [place] [address] Mig Welder: Ken Rudd II, M.D., Ph.D. 53 Desirable <150 Borderline high 150-199 High 200-499 Very High >500 54 Desirable <200 Borderline high 200-239 High >239 55 Low <40 Desirable: 40-60 High: >60 56 Desirable: <100 mg/dL Near Optimal: 100-129 mg/dL Borderline High: 130-159 mg/dL High: 160-189 mg/dL Very High: >189 mg/dL 57 Because ethnic data is not always readily available, this report includes an eGFR for both -Americans and non- Americans. The National Kidney Disease Education Program (NKDEP) does not endorse the use of the MDRD equation for patients that are not between the ages of 18 and 70, are , have extremes of body size, muscle mass, or nutritional status, or are non- or non-. According to the National Kidney Foundation, irrespective of diagnosis, the stage of the disease is based on the level of kidney function: Stage Description GFR(mL/min/1.73 m(2)) 1 Kidney damage with normal or decreased GFR 90 2 Kidney damage with mild decrease in GFR 60-89 3 Moderate decrease in GFR 30-59 4 Severe decrease in GFR 15-29 5 Kidney failure <15 (or dialysis) 58 High reactive sample are considered positive for Hepatitis C 59 SEE RESULT BELOW Name: TRINI RODRIGUEZ : [address]: Pb Vann III, MD Acct: [id number] Unit: [id number] AGE: 64 Location: LAB Re08/27/14 SEX: M Status: REG REF SPEC: [id number] MICHELLE: 08/27/14-1115 [facility] DR: Pb Vann III, MD REQ: [id number] RECD: 08/27/14486 STATUS: COMP _ SOURCE: URINE SPDESC: ORDERED: Urine Culture Procedure Result Verified Site Urine Culture Final 08/29/14- 0845 ML Organism 1 MRSA Vantage Count >100,000 (Many) CFU/ML 1. MRSA M.I.C. RX --------- ------ Penicillin >=0.5 R Gentamicin <=0.5 S Linezolid 2 S Nitrofurantoin <=16 S Oxacillin >=4 R * Quinupristin/Dalfopristin <=0.25 S Rifampin <=0.5 S Tetracycline <=1 S Doxycycline - Deduced S * Minocycline - Deduced S Trimethoprim/Sulfamethoxazole <=10 S Vancomycin 1 S Imipenem-Deduced R * Ampicillin/Sulbactam-Deduced R Cefazolin-Deduced R * These antibiotics are not available in the [facility] Formulary Contact the Microbiology Department for any additional antibiotic reporting. * ML - MAIN LAB ([facility]) . END OF REPORT * ML=Testing performed at Main Lab DEPARTMENT OF PATHOLOGY, [address] [place] [address] Benjamin Fonseca M.D. Director [facility] # [id number] 60 Because ethnic data is not always readily available, this report includes an eGFR for both -Americans and non- Americans. The National Kidney Disease Education Program (NKDEP) does not endorse the use of the MDRD equation for patients that are not between the ages of 18 and 70, are , have extremes of body size, muscle mass, or nutritional status, or are non- or non-. According to the National Kidney Foundation, irrespective of diagnosis, the stage of the disease is based on the level of kidney function: Stage Description GFR(mL/min/1.73 m(2)) 1 Kidney damage with normal or decreased GFR 90 2 Kidney damage with mild decrease in GFR 60-89 3 Moderate decrease in GFR 30-59 4 Severe decrease in GFR 15-29 5 Kidney failure <15 (or dialysis) 61 RUN DATE: 04/24/13 [facility] LAB LIVE PAGE 1 RUN TIME: [address] [place] [address] Specimen Inquiry Name: WESTRINI : [address]: Pb Vann III, MD Acct: [id number] Unit: [id number] AGE: 62 Location: [facility] Re04/22/13 SEX: M Status: REG REF SPEC: [id number] MICHELLE: 04/22/13-[address]: Pb Vann III, MD REQ: [id number] RECD: 04/22/13 STATUS: COMP _ SOURCE: URINE SPDESC: ORDERED: Urine Culture QUERIES: Medent Number [id number] Procedure Result Verified Site Urine Culture Final 04/24/13- 0937 ML Organism 1 STAPHYLOCOCCUS EPIDERMIDIS Vantage Count >100,000 (Many) CFU/ML 1. STAPHYLOCOCCUS EPIDERMIDIS M.I.C. RX --------- ------ Penicillin 0.25 R Gentamicin <=0.5 S Linezolid 1 S Nitrofurantoin <=16 S Oxacillin >=4 R * Quinupristin/Dalfopristin <=0.25 S Rifampin <=0.5 S Tetracycline 2 S Doxycycline - Deduced S * Minocycline - Deduced S Tigecycline <=0.12 S Vancomycin 1 S Imipenem-Deduced R * Ampicillin/Sulbactam-Deduced R Cefazolin-Deduced R * These antibiotics are not available in the [facility] Formulary Contact the Microbiology Department for any additional antibiotic reporting. END OF REPORT * ML=Testing performed at Main Lab DEPARTMENT OF PATHOLOGY, [address] [place] [address] Benjamin Fonseca M.D. Director [facility] Permit #[id number] Procedures Date CPT Code Description Status 05/28/2016 88357 ECHO Stress Test Incl Perf Contiuous ekg Monitoring Completed W/Phys Superv 04/18/2015 Colonoscopy Completed 11/10/2014 64314 EKG Tracing & Interpretation Completed Encounters Type Date Location Provider CPT E/M Dx Office Visit 08/12/2017 1:20p [facility] [place], [address] Z21 Infectious Diseases M.D. Z79.899 R91.8 Office Visit 05/13/2017 1:20p [facility] [place], 60576 B18.2 Infectious Diseases M.D. Z21 Z79.899 K74.0 Z23 Office Visit 03/11/2017 1:40p [facility] [place], 63604 B18.2 Infectious Diseases M.D. Z21 Z79.899 Office Visit 01/07/2017 2:20p [facility] [place], 18170 B18.2 Infectious Diseases M.D. Z21 R06.00 Z79.899 Office Visit 11/26/2016 2:00p [facility] [place], 70688 B18.2 Infectious Diseases M.D. Z21 R06.00 Office Visit 10/22/2016 4:00p [facility] [place], 43522 B18.2 Infectious Diseases M.D. Z21 Z79.899 R06.00 Office Visit 08/07/2016 11:30a [facility] [place], 87236 B18.2 Infectious Diseases M.D. Z21 Z79.899 Office Visit 06/25/2016 2:00p [facility] [place], 38883 B18.2 Infectious Diseases M.D. Z21 Z79.899 B02.23 Office Visit 05/10/2016 1:20p [facility] [place], 35404 R06.00 Infectious Diseases M.D. Z21 Z79.899 B18.2 D64.9 Office Visit 03/28/2016 3:40p [facility] [place], [address]45 Z21 Infectious Diseases M.D. Z79.899 D64.9 B18.2 Office Visit 02/09/2016 2:00p [facility] [place], 92163 B18.2 Infectious Diseases M.D. B20 D69.6 Office Visit 11/23/2015 2:00p [facility] [place], 19934 B18.2 Infectious Diseases M.D. B20 R63.4 D69.6 Z23 Office Visit 10/25/2015 10:30a [facility] [place], 02258 B18.2 Infectious Diseases M.D. B20 R63.4 D72.819 D69.6 Office Visit 05/06/2015 11:40a [facility] Internal Medicine Pb Vann, 76712 G47.00 - Ofelia Snow B18.2 R31.9 Office Visit 02/21/2015 2:20p [facility] Internal Medicine Pb Vann, 40863 B18.2 - Ofelia Snow N21.0 Office Visit 11/10/2014 11:00a [facility] Internal [place] [address] V72.84 Ofelia 715.95 070.54 Office Visit 10/06/2014 11:15a [facility] M.D. 00225 715.95 C.M.A. 715.35 Office Visit 08/19/2014 3:00p [facility] Internal Medicine Pb Vann, 52343 110.1 - Ofelia Snow V77.91 V77.1 V73.89 305.1 715.35 594.1 V03.82 V06.1 Office Visit 07/26/2014 10:30a [facility] M.D. 87768 715.35 C.M.A. 729.6 Office Visit 04/22/2013 1:40p [facility] Internal Medicine Pb Vann, 53946 788.1 - Ofelia Snow 719.45 Plan of Care Future Appointment(s):01/30/2018 1:20 pm - Elvis [place]lejo M.D. 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
[2018-01-09 07:27] VITALS: BP 144/111
[2018-01-09] MEDS ORDERED: Polymyx/Trimethoprim OPTH* 10 ML BTL LEFT EYE SCH (07:30)
--- NOTE | 2018-01-11 08:26 | ED ---
Throat Pain/Nasal Congestion - HPI Summary HPI Summary: Patient is a 67-year-old otherwise healthy male presenting to the ED with left- sided blurry vision and erythema without itching or pain for the past 2 days. He is unsure if this was acute onset or gradual process over the past week. He states while he thinks he may have had blurry vision for the past 2 days he decided to check this morning by covering up the contralateral eye and states he could see absolutely nothing with the left eye. He denies any pain. Denies any history of hypertension, diabetes or other vascular disease. He was seen by an specification consultant approximately 2 years ago and was given a good report. - History of Current Complaint Chief Complaint: EDEyeProblem Time Seen by Provider: 01/09/18 05:48 Hx Obtained From: Patient Onset/Duration: Other - Unsure if this is sudden onset or gradual onset Severity: Severe Associated Signs And Symptoms: Positive: Negative - Epiglottits Risk Factors Epiglottis Risk Factors: Negative - Allergies/Home Medications Allergies/Adverse Reactions: Allergies Allergy/AdvReac Type Severity Reaction Status Date / Time No Known Allergies Allergy Verified 01/09/18 05:35 PMH/Surg Hx/FS Hx/Imm Hx Previously Healthy: Yes Endocrine/Hematology History: Denies: Hx Anticoagulant Therapy, Hx Diabetes Cardiovascular History: Denies: Other Cardiovascular Problems/Disorders - DENIES Respiratory History: Denies: Other Respiratory Problems/Disorders - DENIES GI History: Reports: Other GI Disorders - gall stone History: Reports: Other Problems/Disorders - Anal/ fistula, surgical repair Denies: Hx Renal Disease Sensory History: Denies: Hx Contacts or Glasses Opthamlomology History: Denies: Hx Contacts or Glasses Psychiatric History: Reports: Hx Substance Abuse - states not in 8 years. - Surgical History Surgery Procedure, Year, and Place: Anal/ fistula, surgical repair ~2010 - Immunization History Hx Pertussis Vaccination: No Immunizations Up to Date: Yes Infectious Disease History: No Infectious Disease History: Denies: Traveled Outside the [place] in Last 30 Days - Family History Known Family History: Positive: None Negative: Cardiac Disease Family History: R & n/C - Social History Occupation: Unemployed Lives: With Family Alcohol Use: None Hx Substance Use: No Substance Use Type: Reports: None Hx Tobacco Use: Yes Smoking Status (MU): Former Smoker Review of Systems Constitutional: Negative Negative: Fever, Chills, Fatigue, Skin Diaphoresis Positive: Blurred Vision, Erythema. Negative: Photophobia, Diplopia, Drainage Negative: Palpitations, Chest Pain Negative: Shortness Of Breath, Cough Genitourinary: Negative Positive: no symptoms reported Negative: Rash, Bruising Neurological: Negative Negative: Headache, Weakness, Paresthesia, Numbness All Other Systems Reviewed And Are Negative: Yes Physical Exam Triage Information Reviewed: Yes Vital Signs On Initial Exam: Initial Vitals Temp Pulse Resp BP Pulse Ox 98.0 F 75 16 149/108 95 01/09/18 05:30 01/09/18 05:30 01/09/18 05:30 01/09/18 05:30 01/09/18 05:30 Vital Signs Reviewed: Yes Appearance: Positive: Well-Appearing, Well-Nourished Skin: Positive: Warm, Skin Color Reflects Adequate Perfusion Eyes: Positive: EOMI, KATHLEEN, Conjunctiva Inflammed Neck: Positive: Supple, No Lymphadenopathy Respiratory/Lung Sounds: Positive: Clear to Auscultation, Breath Sounds Present Cardiovascular: Positive: RRR, Pulses are Symmetrical in both Upper and Lower Extremities Musculoskeletal: Positive: Normal, Strength/ROM Intact Psychiatric: Positive: Normal, Affect/Mood Appropriate AVPU Assessment: Alert Diagnostics - Vital Signs Vital Signs Temp Pulse Resp BP Pulse Ox 01/09/18 07:24 97.8 F 70 16 144/111 95 01/09/18 05:30 98.0 F 75 16 149/108 95 - Laboratory Lab Statement: Any lab studies that have been ordered have been reviewed, and results considered in the medical decision making process. EENT Course/Dx - Course Course Of Treatment: Patient is evaluated for left-sided blurry vision. On physical examination, the eye has conjunctival injection without tearing or crusting. Eye exam - both eyes 20/40, L eye 0, R eye 20/25. He states he is able to see lights, but no silhouettes and is unable to tell the object that in front of him. EOMI/KATHLEEN. No entrapment, steamy cornea or fixed pupil on exam. Again, he is unable to tell me if this was sudden onset. He will be referred immediately to an specification consultant. Call Dr. Simms office who is able to get him in tomorrow morning at 8:30 AM. Patient states he is unable to go there today and is unwilling to. He will be diagnosed this time with a conjunctivitis , but needs further evaluation for other etiology. - Differential Diagnoses Differential Diagnoses: Conjunctivitis, Corneal Abrasion, Other - CRVO, blurred vision - Diagnoses Provider Diagnoses: Blurry vision, left eye Discharge - Sign-Out/Discharge Documenting (check all that apply): Patient Departure - Discharge Plan Condition: Stable Disposition: HOME Patient Education Materials: Conjunctivitis (ED) Referrals: Aron Blake [Medical Doctor] - Trey Simms MD [Medical Doctor] - Albin Green MD [Medical Doctor] - Pb Vann MD [Primary Care Provider] - Additional Instructions: Please follow-up with ophthalmology We will call today with an appointment - Billing Disposition and Condition Condition: STABLE Disposition: Home
== END 2018-01-09 07:24 | disposition home or self-care (01) ==
LOC: ED 05:30
DX: H53.8 Other visual disturbances (principal); Z87.891 Personal history of nicotine dependence
CPT/HCPCS: 99282

== ENCOUNTER 2018-08-19 12:07 | Day surgery (SDC) | payer MEDICARE, MEDICAID ==
[~2018-08-19 12:07] MED LIST: Acetaminophen TAB* 325 MG PO PRN; Buffered Lidocaine 1% SYRIN* 1 ML/SYRINGE INTRADERM ONE
[2018-08-19] MEDS ORDERED: fentaNYL* 50 MCG/ML 2 ML VIAL (100 MCG VIAL) ONE (13:35)
[2018-08-19] MEDS ORDERED: Midazolam* 1 MG/ML 2 ML VIAL (2 MG) ONE (13:35)
[2018-08-19] MEDS ORDERED: Phenylephrine OPHTH SOL 2.5%* 2 ML ONE (13:37)
[2018-08-19] MEDS ORDERED: Ketorolac 0.5% OPHTH (NF) 0.5 % 5 ML BTL ONE (13:37)
[2018-08-19] MEDS ORDERED: Tetracaine 0.5% OPTH.SOL 4 ML* 1 DROP BTL ONE (13:37)
[2018-08-19] MEDS ORDERED: Cyclopentolate 1% OPTH.SOL* 2 ML BTL ONE (13:37)
[2018-08-19] MEDS ORDERED: Neomycin/Polymy/Dex OPHTH.OIN* 3.5 GM ONE (13:37)
[2018-08-19] MEDS ORDERED: Tropicamide 1% OPTH.SOL* BTL ONE (13:37)
[2018-08-19] MEDS ORDERED: Lidocaine 1%* 5 ML VIAL ONE (13:37)
[2018-08-19] MEDS ORDERED: Propofol* 10 MG/ML 20 ML BTL ONE (14:24)
[2018-08-19] MEDS ORDERED: acetaZOLAMIDE TAB* 250 MG ONE (15:09)
[2018-08-19 15:13] VITALS: BP 129/89
--- NOTE | 2018-08-19 20:20 | OP ---
DATE OF OPERATION: 08/19/18 - [facility] DATE OF : 54 SURGEON: Trey Simms MD DOOR TO DOOR LEAD GENERATION: None. ANESTHESIA: Topical with intravenous sedation. PRE-OP DIAGNOSES: Retained lens material, anterior chamber, and aphakia. POST-OP DIAGNOSES: Retained lens material, anterior chamber, and aphakia. OPERATIVE PROCEDURE: Removal of lens material, anterior chamber and placement of anterior chamber intraocular lens implant, left eye. COMPLICATIONS: None. BLOOD LOSS: None. DESCRIPTION OF PROCEDURE: The patient was brought to the operating room and received intravenous sedation. A drop of tetracaine was placed in his left eye. The patient was prepped and draped in the usual sterile fashion for ophthalmic surgery and attention was directed to the left eye, where speculum was placed. The eye was examined and revealed mild corneal edema with a minuscule chip of lens in the anterior chamber measuring probably a quarter of a millimeter. The patient was noted to be aphakic and there was no vitreous anterior to the pupil. A paracentesis was created at the site of the prior paracentesis, which was at 5 o'clock. Approximately one-tenth of a cc of 1% preservative-free lidocaine was injected into the anterior chamber. This was followed by Miostat. Subsequently, DisCoVisc was used to inflate the anterior chamber. The original wound was reopened with a triplanar clear corneal incision at the 3 o'clock position. An irrigation and aspiration tip was placed into the wound and was used to remove the small amount of lens material that remained. Subsequently, more DisCoVisc was used to inflate the anterior chamber and the wound was enlarged with a keratome to approximately 4 mm. A Sheets glide was placed into the wound across the anterior chamber to the nasal angle. An [id number] anterior chamber lens was placed on top of the glide and slid into proper position. The glide was then removed and a trailing haptic was tucked nicely above the iris. The wound was closed with interrupted 10- 0 nylon sutures. The knots were trimmed and buried. A second paracentesis was created at the 1 o'clock position. A bimanual irrigation and aspiration system was used to remove viscoelastic from the eye. The eye was inflated with balanced saline solution and the paracenteses were hydrated. At the end of the case, the pupil was round and centered. There was no vitreous anterior to the pupil. The lens was centered and stable. All wounds appeared watertight. The eye pressure appeared normal. Topical Maxitrol ointment was placed in the surface of the eye. The eye was closed, patched, and shielded. The patient was sent to recovery room in stable condition with postoperative instructions and followup appointment given. [id number]/[facility] #: [id number] JOSE MARTIN
== END 2018-08-19 15:28 | disposition home or self-care (01) ==
LOC: OREAST 12:07
PROVIDERS: ATTEND Ophthalmology
DX: H59.022 Cataract (lens) fragments in eye following cataract surgery, left eye (principal); H27.02 Aphakia, left eye; J45.909 Unspecified asthma, uncomplicated; Z87.891 Personal history of nicotine dependence; Z21 Asymptomatic human immunodeficiency virus [HIV] infection status
CPT/HCPCS: A9270-GY; J2250; J2704; J3010; V2630

== ENCOUNTER 2018-10-21 13:53 | Emergency (ER) | payer MEDICARE, MEDICAID ==
--- OUTSIDE RECORDS SUMMARY | 2018-10-21 14:15 | XMS REPORT | Continuity of Care Document ---
:1950 External Reference #:[id number] Author Name Aron Blake, OD Address [address] [place] [address] Care Team Providers Name Role Phone Pb Vann MD Care Team Information Regional Extension Service Specialist Unavailable bP Vann MD Primary Care Physician Unavailable Payers Date Identification Numbers Payment Provider Subscriber Policy Number: [id number] Medicare [facility] Jai Rodriguez PayID: [id number] [address] [place] [address] Policy Number: [id number] Medicaid [place] Jai Rodriguez PayID: [id number] [address] [place] [address] Problems Active Problems Provider Date Problem Onset: Family History Date Family Member(s) Observation Comments General Unknown Father Unknown Mother Unknown Social History Type Date Description Comments Sex Unknown ETOH Use Denies alcohol use Tobacco Use Start: Unknown End: Unknown Patient is a former smoker Smoking Status Reviewed: 10/13/18 Patient is a former smoker Allergies, Adverse Reactions, Alerts Description No Known Drug Allergies Medications Active Medications SIG Qnty Indications Ordering Date Provider Pred Forte one drop three times per 10ml Aron Blake, 08/26/2018 1% day x 1 week left eye, OD Suspension then two times per day x 1 week, then once per day x 1 week Triumeq Unknown 08/05/[phone] Tablets Ventolin HFA Albuterol Hfa Inhaler* 1units Unknown 08/05/2017 108(90Base) mcg/Act Aerosol Zithromax Z-Minor Azithromycin Tab* 1tabs Unknown 08/05/2017 250mg Tablets Tessalon Perles Benzonatate Cap* 12caps Unknown 08/05/2017 100mg Capsules Medrol Methylprednisolone 1units Unknown 08/05/2017 4mg TBPK History Medications Ketorolac 1 drop left eye 10ml Aron Blake, 08/26/2018 - Tromethamine tid x 3 weeks OD 10/13/2018 0.5% Solution Ciprofloxacin HCL 1 drop four times 5ml Trey Simms, 08/12/2018 - 0.3% a day start the M.D. 08/26/2018 Solution morning of surgery in the scheduled eye Moxifloxacin HCL Instill 1 Drop In 3ml Trey Simms, 08/08/2018 - 0.5% The Left Eye 4 M.D. 08/12/2018 Solution Times A Day. Start Morning Of Surgery Moxifloxacin HCL Instill 1 Drop In 3ml Trey Simms, 08/08/2018 - 0.5% The Left Eye 4 M.D. 08/08/2018 Solution Times A Day. Start Morning Of Surgery Pred Forte 1 drops left eye 10ml Trey Simms, 08/08/2018 - 1% four times a day M.D. 08/26/2018 Suspension Ketorolac 1 drops left eye 10ml Trey Simms, 08/08/2018 - Tromethamine twice a day M.D. 08/26/2018 0.5% Solution Vigamox 1 drop left eye 3ml Trey Simms, 08/08/2018 - 0.5% Solution four times a day, M.D. 08/08/2018 start drops morning of surgery Pred Forte 1 drops left eye 10ml H27.02 Trey Simms, 07/21/2018 - 1% three times a day M.D. 08/26/2018 Suspension Prednisolone Acetate 1 drop tid OS x 1 10ml Aron Blake, 06/24/2018 - 1% week, then taper OD 07/21/2018 Suspension as directed Acetazolamide ER 1 by mouth twice 14caps Z48.89 Trey Simms, 2018 - 500mg a day M.D. 05/27/2018 Caps ER 12HR Vigamox 1 drop left eye 3ml Trey Simms, 04/23/2018 - 0.5% Solution four times a day, M.D. 04/23/2018 start drops morning of surgery Ketorolac 1 drops left eye 5ml Trey Simms, 04/23/2018 - Tromethamine twice a day M.D. 06/24/2018 0.5% Solution Pred Forte 1 drops left eye 10ml Trey Simms, 04/23/2018 - 1% four times a day M.D. 06/24/2018 Suspension Ciprofloxacin HCL 1 drop four times 5ml Trey Simms, 04/23/2018 - 0.3% a day start the M.D. 05/27/2018 Solution morning of surgery in the scheduled eye Vital Signs Date Vital Result Comment 09/26/2018 10:24am Intraocular Pressure Left Eye 18 mmHg Cornea Thickness Left Eye 449 m Cornea Thickness Right Eye 550 m Pachymetry adjusted IOP Right Eye +6 Pachymetry adjusted IOP Left Eye 0 08/26/2018 11:30am Intraocular Pressure Left Eye 22 mmHg 08/20/2018 9:29am Intraocular Pressure Left Eye 20 mmHg 07/21/2018 10:40am Intraocular Pressure Left Eye 14 mmHg 06/26/2018 2:36pm Intraocular Pressure Left Eye 16 mmHg 06/24/2018 11:24am Intraocular Pressure Left Eye 14 mmHg 05/27/2018 10:34am Intraocular Pressure Left Eye 11 mmHg 05/22/2018 11:18am Intraocular Pressure Left Eye 14 mmHg 05/21/2018 10:49am Intraocular Pressure Right Eye 62 mmHg 38 after DMX, ryan 04/14/2018 2:08pm Intraocular Pressure Right Eye 17 mmHg Intraocular Pressure Left Eye 17 mmHg 02/07/2018 9:42am Intraocular Pressure Right Eye 17 mmHg Intraocular Pressure Left Eye 17 mmHg Procedures Date Code Description Status 08/19/2018 66584 Insert Intraocular Lens Prosthesis Completed 07/21/2018 94474 Ophthalmic Biometry By Partial Coherence Interferometry Completed W/Intra 07/21/2018 45476 Eye Exam Est Intermediate Completed 05/20/2018 16558 Extracapsular Cataract Removal W/Insertion Of Intraocular Completed Lens pr 04/14/2018 57075 Ophthalmic Biometry By Partial Coherence Interferometry Completed W/Intra 02/07/2018 76754 Eye Exam New Comprehensive Completed 02/07/2018 85720 B-Scan Contact, Ophthalmic Ultrasound Echography Completed Encounters Type Date Location Provider Dx Diagnosis Office Visit 04/14/2018 Main Office Trey Simms, H26.132 Total traumatic 1:45p M.D. cataract, left eye Plan of Treatment Future Appointment(s):11/13/2018 10:15 am - Aron Blake, OD at [id number] - Aron Blake ODZ48.89 Encounter for other specified surgical aftercareFollow up:2 weeks f/u
--- OUTSIDE RECORDS SUMMARY | 2018-10-21 14:15 | XMS REPORT | Continuity of Care Document ---
:1950 External Reference #:[id number] Author Name Aron Blake, OD Address [address] [place] [address] Care Team Providers Name Role Phone Pb Vann MD Care Team Information Detective Precinct Unavailable Pb Vann MD Primary Care Physician Unavailable Payers Date Identification Numbers Payment Provider Subscriber Policy Number: [id number] Medicare [facility] Jai Rodriguez PayID: [id number] [address] [place] [address] Policy Number: [id number] Medicaid [place] Jai Rodriguez PayID: [id number] [address] [place] [address] Problems Active Problems Provider Date Problem Onset: [...] Ordering Date Provider Pred Forte one drop once per day 5ml Aron Blake, 10/13/2018 1% left eye x 1 month OD Suspension Triumeq Unknown 08/05/[phone] Tablets Ventolin HFA Albuterol Hfa Inhaler* 1units Unknown 08/05/2017 108(90Base) mcg/Act Aerosol Zithromax Z-Minor Azithromycin Tab* 1tabs Unknown 08/05/2017 250mg Tablets Tessalon Perles Benzonatate Cap* 12caps Unknown 08/05/2017 100mg Capsules Medrol Methylprednisolone 1units Unknown 08/05/2017 4mg TBPK History Medications Ketorolac 1 drop left eye 10ml Aron Blake, 08/26/2018 - Tromethamine tid x 3 weeks OD 10/13/2018 0.5% Solution Pred Forte one drop three 10ml Aron Blake, 08/26/2018 - 1% times per day x 1 OD 10/13/2018 Suspension week left eye, then two times per day x 1 week, then once per day x 1 week Ciprofloxacin HCL 1 drop four times 5ml [...] eye Vital Signs Date Vital Result Comment 10/13/2018 11:46am Intraocular Pressure Left Eye 17 mmHg 09/26/2018 10:24am Intraocular Pressure Left Eye 18 [...] Right Eye 62 mmHg 38 after DMX, combigan 04/14/2018 2:08pm Intraocular Pressure Right Eye 17 mmHg Intraocular Pressure Left Eye 17 mmHg 02/07/2018 9:42am Intraocular Pressure Right Eye 17 mmHg Intraocular Pressure Left Eye 17 mmHg Procedures Date Code Description Status 08/19/2018 34525 Insert Intraocular Lens Prosthesis Completed 07/21/2018 53975 Ophthalmic Biometry By Partial Coherence Interferometry Completed W/Intra 07/21/2018 03199 Eye Exam Est Intermediate Completed 05/20/2018 24876 Extracapsular Cataract Removal W/Insertion Of Intraocular Completed Lens pr 04/14/2018 37734 Ophthalmic Biometry By Partial Coherence Interferometry Completed W/Intra 02/07/2018 52118 Eye Exam New Comprehensive Completed 02/07/2018 12428 B-Scan Contact, Ophthalmic Ultrasound Echography Completed Encounters Type Date Location Provider Dx Diagnosis Office Visit 04/14/2018 Main Office Trey Simms, H26.132 Total traumatic 1:45p M.D. cataract, left eye Plan of Treatment Future Appointment(s):11/13/2018 10:15 am - Aron Blake, OD at Main [id number] - Aron Blake, ODZ48.89 Encounter for other specified surgical aftercareFollow up:1 month f/u, sooner PRN
--- OUTSIDE RECORDS SUMMARY | 2018-10-21 14:15 | XMS REPORT | Continuity of Care Document ---
:1950 External Reference #:[id number] Author Name Aron Blake, OD Address [address] [place] [address] Care Team Providers Name Role Phone Pb Vann MD Care Team Information Application Technician Unavailable Pb Vann MD Primary Care Physician Unavailable Payers Date Identification Numbers Payment Provider Subscriber Policy Number: [id number] Medicare [facility] Jai Rodriguez PayID: [id number] [address] [place] [address] Policy Number: [id number] Medicaid [place] Jai Rodriguez PayID: [id number] [address] [place] [address] Problems Active Problems Provider Date Problem Onset: Family History Date Family Member(s) Observation Comments Father Unknown Mother Unknown Social History Type Date Description Comments Sex Unknown ETOH Use Denies alcohol use Tobacco Use Start: Unknown End: Unknown Patient is a former smoker Smoking Status Reviewed: 09/26/18 Patient is a former smoker Allergies, Adverse Reactions, Alerts Description No Known Drug Allergies Medications Active Medications SIG Qnty Indications Ordering Date Provider Ketorolac 1 drop left eye tid x 3 10ml Aron Blake, 08/26/2018 Tromethamine weeks OD 0.5% Solution Pred Forte one drop three times per 10ml Aron lBake, 08/26/2018 1% day x 1 week left eye, OD Suspension then two times per day x 1 week, then once per day x 1 week Triumeq Unknown 08/05/2017 [phone] Tablets Ventolin HFA Albuterol Hfa Inhaler* 1units Unknown 08/05/2017 108(90Base) mcg/Act Aerosol Zithromax Z-Minor Azithromycin Tab* 1tabs Unknown 08/05/2017 250mg Tablets Tessalon Perles Benzonatate Cap* 12caps Unknown 08/05/2017 100mg Capsules Medrol Methylprednisolone 1units Unknown 08/05/2017 4mg TBPK History Medications Ciprofloxacin HCL 1 drop four times 5ml [...] Ciprofloxacin HCL 1 drop four times 5ml Trye Simms, 04/23/2018 - 0.3% a day start [...] mmHg Procedures Date Code Description Status 08/19/2018 35468 Insert Intraocular Lens Prosthesis Completed 07/21/2018 58772 Ophthalmic Biometry By Partial Coherence Interferometry Completed W/Intra 07/21/2018 02929 Eye Exam Est Intermediate Completed 05/20/2018 25576 Extracapsular Cataract Removal W/Insertion Of Intraocular Completed Lens pr 04/14/2018 50456 Ophthalmic Biometry By Partial Coherence Interferometry Completed W/Intra 02/07/2018 95779 Eye Exam New Comprehensive Completed 02/07/2018 86700 B-Scan Contact, Ophthalmic Ultrasound Echography Completed Encounters Type Date Location Provider Dx Diagnosis Office Visit 04/14/2018 Main Office Trey Simms, H26.132 Total traumatic 1:45p M.D. cataract, left eye Plan of Treatment Future Appointment(s):10/13/2018 11:15 am - Aron Blake, OD at [id number] - Aron Blake ODZ48.89 Encounter for other specified surgical aftercareFollow up:2 weeks f/u
[2018-10-21] MEDS ORDERED: Tetracaine 0.5% OPTH.SOL 4 ML* 1 DROP BTL ONE (14:37)
[2018-10-21] MEDS ORDERED: Fluorescein Sodium TOPICAL* 1 MG TEST STRIP OPHTHALMIC ONE (14:37)
--- NOTE | 2018-10-21 15:13 | ED ---
Throat Pain/Nasal Congestion - HPI Summary HPI Summary: 68-year-old male presents with left eye pain since lasting night. He states he took too many drops of his cipro. He is suppose to take once drop but he took He takes the eye drops as he had a procedure done 2 months ago for cataracts. He states that he he has having more blurry vision. Has some photophobia. He admits a little bit of a headache. Denies any scratch into the eye. eye has been watering nonstop - History of Current Complaint Chief Complaint: EDEyeProblem Time Seen by Provider: 10/21/18 14:36 - Allergies/Home Medications Allergies/Adverse Reactions: Allergies Allergy/AdvReac Type Severity Reaction Status Date / Time No Known Allergies Allergy Verified 10/21/18 14:19 Home Medications: Home Medications Abacavir/Dolutegravir/Lamivudi [Triumeq Tablet (Nf)] 600 mg PO EVERY OTHER DAY 10/21/18 [History Confirmed 10/21/18] Ciprofloxacin 0.3% OPTH.DANO* 0.3 ophth.soln LEFT EYE QID 10/21/18 [History Confirmed 10/21/18] amLODIPine TAB* [Norvasc 5 mg TAB*] 5 mg PO EVERY OTHER DAY 10/21/18 [History Confirmed 10/21/18] prednisoLONE 1% OPHTH.SUSP* [Pred Forte 1%*] 0.3 ophth.soln LEFT EYE QID [History Confirmed 10/21/18] PMH/Surg Hx/FS Hx/Imm Hx Endocrine/Hematology History: Denies: Hx Anticoagulant Therapy, Hx Diabetes Cardiovascular History: Denies: Hx Hypertension, Other Cardiovascular Problems/Disorders - DENIES Respiratory History: Reports: Other Respiratory Problems/Disorders - states if he walks too long or goes up steps he gets SOB at times GI History: Reports: Other GI Disorders - Cholecystectomy-Sigmoid resection for diverticulitis-colovesical fistual History: Reports: Other Problems/Disorders - Anal/ fistula, surgical repair~2010 Denies: Hx Renal Disease Musculoskeletal History: Denies: Hx Tendonitis, Other Musculoskeletal History Sensory History: Reports: Hx Cataracts - Bilateral eyes, left eye worse than right Denies: Hx Contacts or Glasses, Hx Hearing Aid Opthamlomology History: Reports: Hx Cataracts - Bilateral eyes, left eye worse than right Denies: Hx Contacts or Glasses Neurological History: Denies: Other Neuro Impairments/Disorders Psychiatric History: Reports: Hx Substance Abuse - states not in 8 years. - Cancer History Hx Chemotherapy: No - Surgical History Surgery Procedure, Year, and Place: Anal/ fistula, surgical repair ~2010. Dental Extractions. left cataract surgery Hx Anesthesia Reactions: No Infectious Disease History: No Infectious Disease History: Reports: Hx Hepatitis - Hep C, treated per patient, states he is fine now Denies: Traveled Outside the [place] in Last 30 Days - Family History Known Family History: Positive: None Negative: Cardiac Disease Family History: R & n/C - Social History Alcohol Use: None Alcohol Amount: "14 years clean" Hx Substance Use: No Substance Use Type: Reports: None Substance Use Comment - Amount & Last Used: "14 years clean" Hx Tobacco Use: Yes Smoking Status (MU): Former Smoker Type: Cigarettes Amount Used/How Often: 1/2 PPD for 45 years Review of Systems Negative: Fever Positive: Photophobia, Drainage, Erythema Negative: Chest Pain Negative: Shortness Of Breath All Other Systems Reviewed And Are Negative: Yes Physical Exam Triage Information Reviewed: Yes Vital Signs On Initial Exam: Initial Vitals Temp Pulse Resp BP Pulse Ox 98.2 F 69 18 168/122 95 10/21/18 13:56 10/21/18 13:56 10/21/18 13:56 10/21/18 13:56 10/21/18 13:56 Vital Signs Reviewed: Yes Appearance: Positive: Well-Appearing Skin: Positive: Warm, Dry Head/Face: Positive: Normal Head/Face Inspection Eyes: Positive: EOMI, KATHLEEN, Conjunctiva Inflammed ENT: Positive: Normal ENT inspection, Pharynx normal, TMs normal Respiratory/Lung Sounds: Positive: Clear to Auscultation, Breath Sounds Present Cardiovascular: Positive: Normal, RRR Abdomen Description: Positive: Nontender, Soft Bowel Sounds: Positive: Present Musculoskeletal: Positive: Normal Neurological: Positive: Normal Psychiatric: Positive: Normal Procedures - Eye Procedure left Alcaine Drops Administered: Yes - no uptake left eye Diagnostics - Vital Signs Vital Signs Temp Pulse Resp BP Pulse Ox 10/21/18 13:56 98.2 F 69 18 168/122 95 - Laboratory Lab Statement: Any lab studies that have been ordered have been reviewed, and results considered in the medical decision making process. EENT Course/Dx - Course Course Of Treatment: 68-year-old male presents with left eye pain since lasting night. He states he took too many drops of his cipro. He is suppose to take once drop but he took He takes the eye drops as he had a procedure done 2 months ago for cataracts. He states that he he has having more blurry vision. Has some photophobia. He admits a little bit of a headache. Denies any scratch into the eye. On exam conjunctiva injected. has mildly dilated left eye pupil that is poorly reactive to light. pressure 58, 46, and 21. no uptake on fluorscein exam. does not appear in any pain distress. spoke with dr simms office were he is a patient and they say has history of glaucoma and has had elevated pressure in past so made an appointment for tomorrow. told no eye drops and use tyenlol for pain. patient understand and agrees with plan. - Differential Diagnoses Differential Diagnoses: Conjunctivitis, Corneal Abrasion, Glaucoma - Diagnoses Provider Diagnoses: Left eye pain Discharge - Sign-Out/Discharge Documenting (check all that apply): Patient Departure Patient Received Moderate/Deep Sedation with Procedure: No - Discharge Plan Condition: Good Disposition: HOME Referrals: Trey Simms MD [Medical Doctor] - Pb Vann MD [Primary Care Provider] - Additional Instructions: you have appointment tomorrow at 10am take tyenlol as needed for pain Return to ED if develop any new or worsening symptoms - Billing Disposition and Condition Condition: GOOD Disposition: Home
[2018-10-21] MEDS ORDERED: Acetaminophen TAB* 325 MG PO ONE (15:52)
[2018-10-21 15:58] VITALS: BP 165/95
== END 2018-10-21 15:57 | disposition home or self-care (01) ==
LOC: ED 13:53
DX: H57.12 Ocular pain, left eye (principal); Z79.899 Other long term (current) drug therapy; Z87.891 Personal history of nicotine dependence
CPT/HCPCS: 99282; A9270-GY

== ENCOUNTER 2019-10-31 11:01 | Inpatient (IN) ==
[2019-10-31] MEDS ORDERED: NS 0.9% 1000 ml BAG 1,000 ML IV ONE (11:07)
[2019-10-31 11:50] LABS: Hematocrit 35 % (42-52); Hemoglobin 11.4 g/dL (14.0-18.0); Mean Corpuscular HGB Conc 33 g/dL (31-36); Mean Corpuscular Hemoglobin 27 pg (27-31); Mean Corpuscular Volume 80 fL (80-94); Red Blood Count 4.29 10^6 /uL (4.18-5.48); Red Cell Distribution Width 17 % (10-15); White Blood Count 6.1 10^3/uL (3.5-10.8)
[2019-10-31 12:05] LABS: INR 1.15 (0.82-1.09)
[2019-10-31 12:16] LABS: ABS Lymphocytes 0.9 10^3/ul (1.0-4.8); ABS Monocytes 0.6 10^3/ul (0-0.8); ABS Neutrophils 4.5 10^3/ul (1.5-7.7); ALT 13 U/L (7-52); AST 20 U/L (13-39); Albumin 3.5 g/dL (3.2-5.2); Albumin/Globulin Ratio 0.9 (1-3); Alkaline Phosphatase 53 U/L (34-104); Anion Gap 7 mmol/L (2-11); BUN/Creatinine Ratio 16.6 (8-20); Blood Urea Nitrogen 24 mg/dL (6-24); C Reactive Protein 24.88 mg/L (<8.01); CO2 Carbon Dioxide 24 mmol/L (22-32); Calcium 8.6 mg/dL (8.6-10.3); Chloride 106 mmol/L (101-111); EGFR African American 58.7 (>60); EGFR Non-African American 48.5 (>60); Eosinophil % 0.8 %; Globulin 3.8 g/dL (2-4); Glucose 127 mg/dL (70-100); Lymphocyte % 15.2 %; Mean Platelet Volume 8.1 fL (7.4-10.4); Platelet Count 92 10^3/uL (150-450); Potassium 3.8 mmol/L (3.5-5.0); Sodium 137 mmol/L (135-145); Total Protein 7.3 g/dL (6.4-8.9)
[2019-10-31 12:24] LABS: Troponin I 0.36 ng/mL (<0.03)
[2019-10-31] MEDS ORDERED: Iodixanol (CONTRAST) 320 MG/ML 100 ML SDV IV ONE ×2 (12:32→14:04)
[2019-10-31] MEDS ORDERED: Ondansetron 4 mg VIAL 2 MG/ML 2 ml VIAL IV PRN (12:56)
[2019-10-31] MEDS ORDERED: Heparin 5000 UNITS/ML 1 mL VIAL IV SCH (13:00)
[2019-10-31] MEDS ORDERED: LAMIVUDI PO SCH (13:00)
[2019-10-31] MEDS ORDERED: ABACAVIR PO SCH (13:00)
[2019-10-31] MEDS ORDERED: DOLUTEGRAVIR PO SCH (13:00)
[2019-10-31] MEDS: Heparin DRIP 25,000 UNITS BAG 25,000 UNITS/500 ML BAG IV SCH (13:03)
[2019-10-31] MEDS ORDERED: NS 0.9% 1000 ml BAG 1,000 ML IV SCH (13:30)
[2019-10-31 14:45] LABS: ABS Lymphocytes 1.1 10^3/ul (1.0-4.8); ABS Monocytes 0.6 10^3/ul (0-0.8); ABS Neutrophils 4.6 10^3/ul (1.5-7.7); Eosinophil % 0.5 %; Hematocrit 35 % (42-52); Hemoglobin 11.2 g/dL (14.0-18.0); Lymphocyte % 17.9 %; Mean Corpuscular HGB Conc 32 g/dL (31-36); Mean Corpuscular Hemoglobin 27 pg (27-31); Mean Corpuscular Volume 83 fL (80-94); Mean Platelet Volume 8.1 fL (7.4-10.4); Nucleated Red Blood Cells % 0.2; Platelet Count 94 10^3/uL (150-450); Red Blood Count 4.23 10^6 /uL (4.18-5.48); Red Cell Distribution Width 17 % (10-15); White Blood Count 6.4 10^3/uL (3.5-10.8)
[2019-10-31 14:52] LABS: Blood Urea Nitrogen 22 mg/dL (6-24); EGFR African American 64.3 (>60); EGFR Non-African American 53.2 (>60)
[2019-10-31 14:56] LABS: Troponin I 0.48 ng/mL (<0.03)
[2019-10-31 16:01] LABS: % Iron Saturation 9 % (15-55); Iron 36 ug/dL (50-212); Total Iron Binding Capacity 385 mcg/dL (250-450); Transferrin 275 mg/dL (203-362); Unsaturated Iron Binding < 370 ug/dL
[2019-10-31 16:19] LABS: Ferritin 14.8 ng/mL (24-336)
[2019-10-31 18:59] LABS: Troponin I 0.45 ng/mL (<0.03)
[2019-10-31 22:13] LABS: Troponin I 0.34 ng/mL (<0.03)
[2019-10-31] MEDS ORDERED: hydrALAZINE 20 mg/ml 1 ML Vial IV IV SLOW PU PRN (23:48)
[2019-11-01 05:19] LABS: ABS Eosinophils 0.2 10^3/ul (0-0.6); ABS Lymphocytes 1.6 10^3/ul (1.0-4.8); ABS Monocytes 0.8 10^3/ul (0-0.8); ABS Neutrophils 3.7 10^3/ul (1.5-7.7); Eosinophil % 2.6 %; Hematocrit 33 % (42-52); Hemoglobin 10.8 g/dL (14.0-18.0); Lymphocyte % 25.6 %; Mean Corpuscular HGB Conc 33 g/dL (31-36); Mean Corpuscular Hemoglobin 27 pg (27-31); Mean Corpuscular Volume 81 fL (80-94); Platelet Count 92 10^3/uL (150-450); Red Blood Count 4.01 10^6 /uL (4.18-5.48); Red Cell Distribution Width 17 % (10-15); White Blood Count 6.3 10^3/uL (3.5-10.8)
[2019-11-01 05:32] LABS: BUN/Creatinine Ratio 14.5 (8-20); Calcium 8.2 mg/dL (8.6-10.3); EGFR African American 75.2 (>60); EGFR Non-African American 62.2 (>60); Magnesium 1.8 mg/dL (1.9-2.7); Potassium 3.9 mmol/L (3.5-5.0)
[2019-11-01] MEDS: DOLUTEGRAVIR PO SCH (08:54)
[2019-11-01] MEDS: ABACAVIR PO SCH (08:54)
[2019-11-01] MEDS: LAMIVUDI PO SCH (08:54)
[2019-11-01] MEDS: Iron Sucrose 200 MG in NS 0.9% 100 ml BAG 100 ML IVPB SCH (09:55)
[2019-11-01] MEDS: Heparin DRIP 25,000 UNITS BAG 25,000 UNITS/500 ML BAG IV SCH (13:01)
[2019-11-02] MEDS ORDERED: Magnesium Sulfate 2 gm BAG 2 GM/50 ML BAG IVPB ONE (08:20)
[2019-11-02] MEDS: ABACAVIR PO SCH (08:26)
[2019-11-02] MEDS: Iron Sucrose 200 MG in NS 0.9% 100 ml BAG 100 ML IVPB SCH (08:26)
[2019-11-02] MEDS: DOLUTEGRAVIR PO SCH (08:26)
[2019-11-02] MEDS: LAMIVUDI PO SCH (08:26)
[2019-11-02 09:17] LABS: ABS Eosinophils 0.2 10^3/ul (0-0.6); ABS Lymphocytes 1.4 10^3/ul (1.0-4.8); ABS Monocytes 0.5 10^3/ul (0-0.8); ABS Neutrophils 3.5 10^3/ul (1.5-7.7); Eosinophil % 3.6 %; Hematocrit 35 % (42-52); Hemoglobin 11.3 g/dL (14.0-18.0); Lymphocyte % 24.2 %; Mean Corpuscular HGB Conc 32 g/dL (31-36); Mean Corpuscular Hemoglobin 26 pg (27-31); Mean Corpuscular Volume 82 fL (80-94); Mean Platelet Volume 8.2 fL (7.4-10.4); Platelet Count 116 10^3/uL (150-450); Red Blood Count 4.28 10^6 /uL (4.18-5.48); Red Cell Distribution Width 17 % (10-15); White Blood Count 5.7 10^3/uL (3.5-10.8)
[2019-11-02 09:37] LABS: BUN/Creatinine Ratio 11.1 (8-20); Calcium 8.1 mg/dL (8.6-10.3); EGFR African American 82.5 (>60); EGFR Non-African American 68.2 (>60); Magnesium 1.8 mg/dL (1.9-2.7); Potassium 4.2 mmol/L (3.5-5.0)
[2019-11-03] MEDS: ABACAVIR PO SCH (07:28)
[2019-11-03] MEDS: LAMIVUDI PO SCH (07:28)
[2019-11-03] MEDS: DOLUTEGRAVIR PO SCH (07:28)
[2019-11-03] MEDS: Iron Sucrose 200 MG in NS 0.9% 100 ml BAG 100 ML IVPB SCH (07:32)
[2019-11-03 07:39] VITALS: BP 146/102
== END 2019-11-03 11:20 | disposition home or self-care (01) | DRG 175 ==
LOC: EDACCT# → ED 11:01 → MEDTELE 13:51
PROVIDERS: ADMIT Internal Medicine; ATTEND Internal Medicine

== ENCOUNTER 2019-12-09 10:55 | Observation (INO) ==
[2019-12-09 11:26] LABS: ABS Eosinophils 0.1 10^3/ul (0-0.6); ABS Lymphocytes 1.5 10^3/ul (1.0-4.8); ABS Monocytes 0.5 10^3/ul (0-0.8); ABS Neutrophils 2.9 10^3/ul (1.5-7.7); Eosinophil % 2.6 %; Hematocrit 41 % (42-52); Hemoglobin 13.5 g/dL (14.0-18.0); Lymphocyte % 29.9 %; Mean Corpuscular HGB Conc 33 g/dL (31-36); Mean Corpuscular Hemoglobin 29 pg (27-31); Mean Corpuscular Volume 86 fL (80-94); Mean Platelet Volume 7.9 fL (7.4-10.4); Platelet Count 104 10^3/uL (150-450); Red Blood Count 4.74 10^6 /uL (4.18-5.48); Red Cell Distribution Width 20 % (10-15)
[2019-12-09 11:48] LABS: ALT 14 U/L (7-52); AST 20 U/L (13-39); Albumin 3.7 g/dL (3.2-5.2); Albumin/Globulin Ratio 0.9 (1-3); Alkaline Phosphatase 64 U/L (34-104); Anion Gap 7 mmol/L (2-11); BUN/Creatinine Ratio 18.5 (8-20); Blood Urea Nitrogen 25 mg/dL (6-24); CO2 Carbon Dioxide 24 mmol/L (22-32); Calcium 9.3 mg/dL (8.6-10.3); Chloride 106 mmol/L (101-111); EGFR African American 63.8 (>60); EGFR Non-African American 52.7 (>60); Globulin 3.9 g/dL (2-4); Glucose 130 mg/dL (70-100); Potassium 4.1 mmol/L (3.5-5.0); Sodium 137 mmol/L (135-145); Total Protein 7.6 g/dL (6.4-8.9)
[2019-12-09] MEDS ORDERED: Iodixanol (CONTRAST) 320 MG/ML 100 ML SDV IV ONE (11:55)
[2019-12-09 11:57] LABS: Troponin I 0.17 ng/mL (<0.03)
[2019-12-09] MEDS ORDERED: Albuterol HFA INHALER 8 gm MDI INH PRN (14:46)
[2019-12-09 16:32] LABS: Troponin I 0.19 ng/mL (<0.03)
[2019-12-09 18:17] LABS: Troponin I 0.14 ng/mL (<0.03)
[2019-12-09] MEDS: BRINZOLAMID BOTH EYES SCH (20:46)
[2019-12-09] MEDS: BRIMONIDIN OPH BOTH EYES SCH (20:46)
[2019-12-10] MEDS ORDERED: LAMIVUDINE PO SCH (09:00)
[2019-12-10] MEDS ORDERED: DOLUTEGRAVIR PO SCH (09:00)
[2019-12-10] MEDS ORDERED: ABACAVIR PO SCH (09:00)
[2019-12-10] MEDS: BRINZOLAMID BOTH EYES SCH (09:06)
[2019-12-10] MEDS: BRIMONIDIN OPH BOTH EYES SCH (09:06)
[2019-12-10 12:12] VITALS: BP 115/83
== END 2019-12-10 15:00 | disposition home or self-care (01) ==
LOC: MEDTELE 10:55 → ED 10:55 → MEDTELE 16:35
PROVIDERS: ADMIT Internal Medicine; ATTEND Internal Medicine